=== PATIENT | female | born 1935 | race Caucasian/White ===

== ENCOUNTER 2018-07-26 08:43 | Inpatient (IN) ==
--- NOTE | 2018-07-11 15:31 | PAT Medication Instructions ---
Medication Instructions Date of Service July 11, 2018 Home Medications Allergy Tablet 1 tab PO UD PRN Antacid 1 tab PO DAILY alprazolam 0.5 mg PO BID amlodipine 2.5 mg PO QPM calcium citrate-vitamin D3 1 tab PO DAILY fluticasone propionate [Flonase 1 spray INTRANASAL UD PRN furosemide 40 mg PO QAM guaifenesin [Mucinex] 600 mg PO BID ibuprofen [Advil] 1 - 2 tab PO TID PRN lactobacillus combination no.4 3,000 mmu cells PO DAILY levothyroxine 88 mcg PO QAM Centrum Silver enkryqkc-rec-staw-FA-lutein 1 tab PO DAILY paroxetine HCl 10 mg PO QAM psyllium husk [Metamucil] 1 tbsp PO DAILY ASK your surgeon for instructions ibuprofen [Advil] 1 - 2 tab PO TID PRN STOP taking 2 weeks before surgery (or as soon as possible if surgery is within 2 weeks) Centrum Silver gdytzbow-yhc-grim-FA-lutein 1 tab PO DAILY DO NOT take the morning of surgery Allergy Tablet 1 tab PO UD PRN Antacid 1 tab PO DAILY calcium citrate-vitamin D3 1 tab PO DAILY furosemide 40 mg PO QAM guaifenesin [Mucinex] 600 mg PO BID lactobacillus combination no.4 3,000 mmu cells PO DAILY psyllium husk [Metamucil] 1 tbsp PO DAILY Take morning of surgery With a small sip of water, OTHERWISE NOTHING TO EAT OR DRINK AFTER MIDNIGHT: alprazolam 0.5 mg PO BID fluticasone propionate [Flonase 1 spray INTRANASAL UD PRN (if needed) levothyroxine 88 mcg PO QAM paroxetine HCl 10 mg PO QAM Take evening before surgery alprazolam 0.5 mg PO BID amlodipine 2.5 mg PO QPM fluticasone propionate [Flonase 1 spray INTRANASAL UD PRN (if needed) guaifenesin [Mucinex] 600 mg PO BID Other Notes If you have any questions please call us at [phone] or [phone] or [phone] or [phone]
--- NOTE | 2018-07-12 10:53 | Anesthesiology Consultation ---
Date of Service July 12, 2018 Assessment & Plan (1) Encounter for pre-operative examination: PCP addendum: 07/20/18: "After review of the CXR and EKG from her preop testing at [facility], pt continues to be medically maximized for this upcoming procedure as a moderate risk.. no medical contraindications at this time." Chart Review Chart Review: Acceptable Risk for Surgery and Patient seen in Pre Admission Testing Teaching & Discussion Pre-Anesthesia Teaching/Discussion Notes: Instructed NPO after midnight before surgery,except medications with 15 cc of water. Medication instructions provided according to the PAT guidelines. History Surgery Operation Date: 07/26/18 07:45 Proposed Procedures p L5-S1 Decompression and Fusion, - Jay John DO s L3-L4, L4-L5 Removal of Hardware with Spinal Cord Monitoring - Jay John DO Height/Weight Height: 5 ft 3.5 in Weight: 56.8 kg Allergies Allergy/AdvReac Type Severity Reaction Status Date / Time terbinafine Allergy Unknown HIVES Unverified 07/06/18 10:33 acetaminophen AdvReac Unknown ABDOMINAL Unverified 07/11/18 15:29 PAIN celecoxib AdvReac Unknown ABDOMINAL Unverified 07/11/18 15:29 PAIN cyclosporine AdvReac Unknown EXCESSIVE Unverified 07/11/18 15:29 EYE BURNING ibuprofen [From Advil] AdvReac Unknown ABDOMINAL Verified 07/11/18 15:29 PAIN WITH "HIGHER DOSES"; TOLERATES "REGULAR DOSE" naproxen AdvReac Unknown ABDOMINAL Unverified 07/11/18 15:29 PAIN propoxyphene AdvReac Unknown ABDOMINAL Unverified 07/11/18 15:29 PAIN tramadol AdvReac Unknown ABDOMINAL Unverified 07/11/18 15:29 PAIN BANDAGES Allergy Unknown "TEARS Uncoded 07/11/18 15:29 SKIN OFF" Medications Home Medications Medication Instructions Recorded Confirmed Last Taken Allergy Tablet 1 tab PO UD PRN 07/06/18 07/06/18 Unknown Antacid 1 tab PO DAILY 07/06/18 07/06/18 Unknown alprazolam 0.5 mg PO BID 07/06/18 07/06/18 07/06/18 amlodipine 2.5 mg PO QPM 07/06/18 07/06/18 07/05/18 calcium citrate-vitamin D3 1 tab PO DAILY 07/06/18 07/06/18 Unknown [Citracal Regular] fluticasone propionate [Flonase 1 spray INTRANASAL UD PRN 07/06/18 07/06/18 Unknown Allergy Relief] furosemide 40 mg PO QAM 07/06/18 07/06/18 07/06/18 guaifenesin [Mucinex] 600 mg PO BID 07/06/18 07/06/18 07/06/18 ibuprofen [Advil] 1 - 2 tab PO TID PRN 07/06/18 07/06/18 Unknown lactobacillus combination no.4 3,000 mmu cells PO DAILY 07/06/18 07/06/18 Unknown [Probiotic] levothyroxine 88 mcg PO QAM 07/06/18 07/06/18 07/06/18 lydapvtu-txs-rwxu-FA-lutein 1 tab PO DAILY 07/06/18 07/06/18 Unknown [Centrum Silver Women] paroxetine HCl 10 mg PO QAM 07/06/18 07/06/18 07/06/18 psyllium husk [Metamucil] 1 tbsp PO DAILY 07/06/18 07/06/18 Unknown Past Medical History Medical History Acid reflux CONTROLLED Anxiety and depression Arthritis Hearing problem Hypertension Hypothyroidism Knee problem RIGHT KNEE PAIN S/P INJECTION 06/2018 Urological disorder BLADDER PROLAPSE Exercise / Class Metabolic Activity III < 4 Walking/Shop/Light housework (USES WALKER IN SETTING OF INCREASING BACK PAIN) Past Family History Family History Brother Family history of lung cancer Family history of heart attack Father Family history of stroke Past Surgical History Surgical History History of appendectomy History of back surgery + HARDWARE History of carpal tunnel release of both wrists History of colonoscopy History of hysterectomy History of tonsillectomy History of vein stripping Past Anesthesia History No Family Hx of Anesthesia Complications and Other Patient states she felt like she did not have memory of period of time in pre-op or post-op with lumbar surgery and did not like the feeling of that. She states she had distinct memory of those time periods with other surgeries. History of PONV No Hx of PONV and No Hx of Motion Sickness Social History Smoking Status: Former smoker tobacco type: cigarettes Do You Dip or Chew Tobacco: No Smoking End Date: QUIT 30 YEARS AGO Hx Alcohol Use: Yes Alcohol type: wine alcohol intake frequency: 0-2 drinks per day (2 "SMALL" GLASSES WINE/NIGHT) substance use type: does not use Review of Systems Patient reports LBP with RLE radiculopathy/neuropathy. Patient complains of "thin skin." Patient denies chest pain, shortness of breath, cough, wheezing, palpitations. Physical Exam Vital Signs VITALS BP 147/76 P 68 TEMP 97.2 SP02 97%RA RESP 20 PHYSICAL Full neck and c-spine range of motion. Full TMJ range of motion. TMD 2.5 finger breaths Mallampati Score 2 Dentition: full denture on upper Lungs: diminished breath sounds Cardiac: regular rate and rhythm, no murmurs noted Spine: normal Carotid arteries: negative bruit Extremities: no edema Testing Electrocardiogram Date: 07/12/18 SB at 58bpm. Low voltage QRS. Chest X-Ray Date: 07/12/18 Findings: + NAD A 9 mm density at the right lung base is felt to represent calcification within overlying costochondral cartilage (report sent to PCP for their reference). Laboratory Results 07/12/18 12:09 07/12/18 12:09 PT 10.1 Seconds (9.0-12.0) 07/12/18 12:09 INR 1.0 (0.9-1.1) 07/12/18 12:09 APTT 24.3 Seconds (21.0-31.0) 07/12/18 12:09 Yellow 07/12/18 12:09 Cloudy (Clear) A 07/12/18 12:09 5.0 (4.5-7.5) 07/12/18 12:09 Ur Specific [place] 1.014 (1.000-1.030) 07/12/18 12:09 Negative (Negative) 07/12/18 12:09 Negative (Negative) 07/12/18 12:09 Negative (Negative) 07/12/18 12:09 Negative (Negative) 07/12/18 12:09 Ur Leukocyte Esterase 3+ (Negative) H 07/12/18 12:09 >30 /hpf (0-5) H 07/12/18 12:09 0-4 /hpf (0-4) 07/12/18 12:09 U Hyaline Cast (Auto) 1-5 /lpf (0-5) 07/12/18 12:09 U Epithel Cells (Auto) >30 /lpf (0-5) H 07/12/18 12:09 1+ (Negative) H 07/12/18 12:09 Blood Type A Positive 07/12/18 12:09 Antibody Screen NEGATIVE 07/12/18 12:09 07/12/18 12:09 Urine Culture - Final Urine,Clean Catch Gardnerella-like bacilli Due to header error, following labs header labels were missin07/12/18 UA 1+ bacteria URINE CULTURE no sensitivities to follow
[2018-07-12 12:38] LABS: Basophils # (auto) 0.01 K/uL (0-0.2); Basophils % (auto) 0.2 %; Eosinophils # (auto) 0.28 K/uL (0-0.5); Eosinophils % (auto) 4.9 %; Hematocrit (blood only) 39.3 % (37-47); Hemoglobin 13.4 g/dL (12.0-16.0); Immature Granulocytes # (auto) 0.03 K/uL (0.00-0.02); Immature Granulocytes % (auto) 0.5 %; Lymphocytes # (auto) 2.61 K/uL (1.2-3.4); Lymphocytes % (auto) 46.1 %; Mean Corpuscular Hgb Conc 34.1 g/dL (32-36); Mean Corpuscular Volume 87.9 fL (80-100); Mean Platelet Volume 9.6 fL (7.4-10.4); Monocytes # (auto) 0.68 K/uL (0.11-0.59); Neutrophils # (auto) 2.05 K/uL (1.4-6.5); Neutrophils % (auto) 36.3 %; Platelet Count 197 K/uL (130-400); RDW Coefficient of Variation 12.6 % (11.5-14.5); RDW Standard Deviation 40.3 fL (36.4-46.3); Red Blood Count 4.47 M/uL (4.2-5.4); White Blood Count 5.66 K/uL (4.8-10.8)
[2018-07-12 12:40] LABS: Appearance Urine Cloudy (Clear); Bacteria Urine Automated 1+ (Negative); Bilirubin Urine Negative (Negative); Blood Urine Negative (Negative); Color Urine Yellow; Epithelial Cell Urine Auto >30 /lpf (0-5); Glucose Urine UA Negative (Negative); Ketones Urine Negative (Negative); Leukocyte Esterase Urine 3+ (Negative); Nitrite Urine Negative (Negative); Protein Urine Negative (Negative); RBC Urine Automated 0-4 /hpf (0-4); Specific Gravity Urine 1.014 (1.000-1.030); Urobilinogen Urine Negative (Negative); WBC Urine Automated >30 /hpf (0-5)
--- NOTE | 2018-07-12 12:44 | XRay Report ---
XR chest Pre-admission PA/Lat CLINICAL HISTORY: Preoperative chest COMPARISON STUDY: No previous studies for comparison. FINDINGS: The cardiac and mediastinal contours are normal. There is no evidence of focal pulmonary co nsolidation. There is no evidence of failure. No pleural effusions are visualized.[ A 9 mm density at the right lung base is felt to represent calcification within overlying costochondral cartilage. IMPRESSION: No active disease in the chest. Electronically signed by: Raj Inman M.D. 07/12/2018 12:43 PM
[2018-07-12 12:54] LABS: Partial Thromboplastin Ratio 0.9; Partial Thromboplastin Time 24.3 Seconds (21.0-31.0); Prothrombin Time 10.1 Seconds (9.0-12.0)
[2018-07-12 13:39] LABS: BUN Creatinine Ratio 13.5 (10-20); Calcium 9.6 mg/dl (8.5-10.1); Creatinine Clr Calc Pharmacy 38.7 ml/min; Est GFR (African American) 65.9; Est GFR (Non-African American) 56.8; Potassium 4.5 mmol/L (3.5-5.1)
[~2018-07-26 08:43] MED LIST: ACETAMINOPHEN 500 MG TAB PO SCH; CEFAZOLIN 1000MG 1,000 MG/7.5 ML SYR IV SCH; CeleBREX 200 MG CAP PO SCH; DEXAMETHASONE SOD INJ 4 MG/ML VIAL ONE; GABAPENTIN 300 MG x 2 PO SCH; GLYCOPYRROLATE 0.2 MG/ML VIAL ONE; HYDROmorphone INJ 2 MG/ML SYR/VIAL ONE; LIDOCAINE HCL 2% 2 ML VIAL/AMP(20MG/ML) INFIL ONE; LR 15ML/HR IV SCH; ONDANSETRON INJ 2 MG/ML 2 ML VIAL ONE; PROPOFOL IV EMULSION 10 MG/ML 100 ML VIAL IV ONE; PROPOFOL IV EMULSION 10 MG/ML 20 ML VIAL IV ONE; ROCURONIUM BROMIDE 10 MG/ML 5 ML VIAL ONE; fentaNYL citrate 100 MCG/2 ML VIAL ONE
[2018-07-26] MEDS ORDERED: ONDANSETRON INJ 2 MG/ML 2 ML VIAL IV PRN (09:42)
[2018-07-26] MEDS ORDERED: LABETALOL HCL IV 5 MG/ML 20ML IV PRN (09:42)
[2018-07-26] MEDS ORDERED: ATROPINE SULFATE 0.1 MG/ML 10ML SYR IV PRN (09:42)
[2018-07-26] MEDS ORDERED: HYDROmorphone INJ 1 MG/ML SYRINGE IV PRN (09:42)
--- NOTE | 2018-07-26 10:04 | History & Physical Bridge Note ---
Date of Service July 26, 2018 History & Physical Bridge Note I have examined the patient, reviewed the History & Physical and in the interval since the performance of the History & Physical I have noted the following changes of clinical significance: no changes noted
--- NOTE | 2018-07-26 10:05 | History & Physical Report ---
Date of Service July 26, 2018 Assessment & Plan (1) Spinal stenosis, lumbar region with neurogenic claudication: Decompression and fusion L5-S1 removal of hardware L3-4 L4-5 Present on Admission?: Yes History of Present Illness Chief Complaint: Back and leg pain Primary Care Provider: Milan Galindo DO This is a 82-year-old female who presents with chronic persistent back and leg pain. After failing extensive course of nonoperative care she is here for surgical intervention. Allergies Allergy/AdvReac Type Severity Reaction Status Date / Time celecoxib AdvReac Severe ABDOMINAL Verified 07/26/18 09:26 PAIN naproxen AdvReac Severe ABDOMINAL Verified 07/26/18 09:26 PAIN propoxyphene AdvReac Severe ABDOMINAL Verified 07/26/18 09:26 PAIN cyclosporine AdvReac Intermediate EXCESSIVE Verified 07/26/18 09:26 EYE BURNING tramadol AdvReac Intermediate ABDOMINAL Verified 07/26/18 09:26 PAIN terbinafine AdvReac Mild Nausea Verified 07/26/18 09:26 BANDAGES Allergy Unknown "TEARS Uncoded 07/26/18 09:26 SKIN OFF" Home Medications Home Medications Medication Instructions Recorded Confirmed Type Allergy Tablet 1 tab PO UD PRN 07/06/18 07/26/18 History Antacid 1 tab PO DAILY 07/06/18 07/26/18 History alprazolam 0.5 mg PO BID 07/06/18 07/26/18 History amlodipine 2.5 mg PO QPM 07/06/18 07/26/18 History calcium citrate-vitamin D3 1 tab PO DAILY 07/06/18 07/26/18 History [Citracal Regular] fluticasone propionate [Flonase 1 spray INTRANASAL UD PRN 07/06/18 07/26/18 History Allergy Relief] furosemide 40 mg PO QAM 07/06/18 07/26/18 History guaifenesin [Mucinex] 600 mg PO BID 07/06/18 07/26/18 History ibuprofen [Advil] 1 - 2 tab PO TID PRN 07/06/18 07/26/18 History lactobacillus combination no.4 3,000 mmu cells PO DAILY 07/06/18 07/26/18 History [Probiotic] levothyroxine 88 mcg PO QAM 07/06/18 07/26/18 History hltzhlpf-uva-wtaa-FA-lutein 1 tab PO DAILY 07/06/18 07/26/18 History [Centrum Silver Women] paroxetine HCl 10 mg PO QAM 07/06/18 07/26/18 History psyllium husk [Metamucil] 1 tbsp PO DAILY 07/06/18 07/26/18 History peg 400-propylene glycol (PF) 1 drp OPHTHALMIC (EYE) BID PRN 07/26/18 07/26/18 History [Systane (PF)] Past Med/Surg History Medical History Acid reflux CONTROLLED Anxiety and depression Arthritis Hearing problem Hypertension Hypothyroidism Knee problem RIGHT KNEE PAIN S/P INJECTION 06/2018 Urological disorder BLADDER PROLAPSE Surgical History History of appendectomy History of back surgery + HARDWARE History of carpal tunnel release of both wrists History of colonoscopy History of hysterectomy History of tonsillectomy History of vein stripping Family History Brother Family history of lung cancer Family history of heart attack Father Family history of stroke Social History Preferred Language: Pashto Communication Ability: Effective Bit Setter Required: No Beliefs That Will Affect Care: Caodaism Caodaism Beliefs: MUSLIM Current Living Situation: Spouse and Other Current Living Situation Comment: LIVES WITH AND SON Other Information That Helps Us Care for You: No Feels Safe at Home: Yes Smoking Status: Former smoker Tobacco Type: cigarettes Do You Dip or Chew Tobacco: No Smoking End Date: QUIT 30 YEARS AGO Hx Alcohol Use: Yes Alcohol type: wine Physical Exam Vital Signs (Past 24 Hours): Last Vital Signs Temp 36.8 C 07/26/18 09:36 Pulse 79 07/26/18 09:36 Resp 22 07/26/18 09:36 BP 167/84 H 07/26/18 09:36 Pulse Ox 98 07/26/18 09:36 Physical Exam: Patient is alert and oriented and neurologically intact.
[2018-07-26] MEDS ORDERED: BACITRACIN INJ 50,000 UNIT VIAL ONE (10:15)
[2018-07-26] MEDS ORDERED: BUPIVACAINE/EPINEPHRINE 0.5% MPF 1:200,000 30 ML VIAL ONE (10:15)
[2018-07-26] MEDS ORDERED: fentaNYL citrate 100 MCG/2 ML VIAL ONE ×2 (10:53→10:59)
[2018-07-26] MEDS ORDERED: FLOSEAL HEMOSTATIC MATRIX 10ML TOP ONE (11:04)
[2018-07-26] MEDS ORDERED: HYDROmorphone INJ 2 MG/ML SYR/VIAL ONE (12:26)
[2018-07-26] MEDS ORDERED: ESMOLOL HCL INJ 10 MG/ML 10ML VIAL IV ONE (12:30)
[2018-07-26] MEDS ORDERED: ePHEDrine sulfate 50 MG/ML SYR ONE (12:30)
[2018-07-26] MEDS ORDERED: ONDANSETRON INJ 2 MG/ML 2 ML VIAL ONE (12:30)
[2018-07-26] MEDS ORDERED: LARYING-O-JET KIT (LTA) ONE (12:30)
[2018-07-26] MEDS ORDERED: KETOROLAC 30 MG/ML VIAL ONE (12:30)
[2018-07-26] MEDS ORDERED: PHENYLEPHRINE 100MCG/ML 5ML SYR ONE (12:30)
--- NOTE | 2018-07-26 12:30 | Operative Report ---
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 #2 exploration of fusion L3- 4 L4-5 per #3 lumbar decompression bilateral medial facetectomies foraminotomies L5-S1. #4 posterior spinal fusion L3-4 L4-5 L5-S1. #5 placement of posterior segmental instrumentation L3-4 L4-5 5 S1. #6 interbody fusion L5-S1 per #7 placement of peek cage 12 x 22 mm at L5-S1. #8 placement of local autograft in the posterior lateral gutters. #9 placement infuse collagen sponge, mass graft in the posterior gutters and ostial amp and interbody space. Surgeon Jay John, Cherry Grower Rola Romeo Estimated Blood Loss 125 Findings Consistent with Post-Op Diagnosis Specimens None Indications This is a 82-year-old female presents with above-mentioned diagnosis after failing extensive course of nonoperative care she like to undergo the above- mentioned procedure. Description of Procedure Patient was met with identified and informed consent obtained. Patient was then taken to the operative suite underwent intubation and placed in a prone position the Erick table on top of the Cullen frame. All bony prominences were well- padded eyes inspected to ensure no external pressure placed upon. This point the lumbar spine was prepped and draped in a normal sterile fashion. Sharp dissection with the assistance of Bovie cautery was performed down to and exposing the instrumentation at L3-4 and 5 on the left. There was no instrumentation on the right. I remove the hardware at L3 L4-5 and explored the fusion mass. No mass was appreciable both on the left and the right sides and there is obvious instability and motion indicating a nonunion at the L3 445 level. I then performed a complete laminectomy of L5 including medial facetectomies and foraminotomies bilaterally addressing severe stenosis. Pedicle screws were then inserted in L3-L4-L5 S1 levels bilaterally with the assistance of fluoroscopy and by way of a transforaminal approach on the right complete discectomy of L5-S1 is performed in plate graded to subcortical bleeding bone and a 12 x 22 mm peek cage filled with ostium bone graft tapped into position. The rods were then placed locked in final position bilaterally. The transverse processes of L3-L4-L5 and the sacral ala were burred to subcortical bleeding bone infuse collagen sponge mass graft local autograft placed in the posterior lateral gutters bilaterally. 15 round JO ANN drain inserted. Incision was then closed with 1 Vicryl fascia 2-0 Vicryl subcutaneous and 4 Monocryl for final skin closure. Steri-Strip sterile dressings placed. Patient awakened taken to PACU stable condition. Please note Rola Romeo present throughout the entire procedure involved in patient positioning complex portions of the surgery and final skin closure. Lastly spinal cord monitoring was utilized throughout the procedure no changes noted. I attest to the content of the Intraoperative Record and any orders documented therein. Any exceptions are noted below.
--- NOTE | 2018-07-26 12:50 | Fluoroscopy Report ---
LUMBAR SPINE, INTRAOPERATIVE FLUOROSCOPY HISTORY: L3-S1 decompression and fusion. FLUOROSCOPY TIME: 23 seconds. FINDINGS: Intraoperative fluoroscopy was provided for the lumbar spine. A single fluoroscopic spot im age demonstrates posterior decompression fusion from L3 through S1 with pedicle screws and rods. The hardware appears intact. IMPRESSION: Fluoroscopy provided for a L3-S1 posterior decompression and fusion. Electronically signed by: Samir Guan M.D. 07/26/2018 12:49 PM
--- NOTE | 2018-07-26 13:25 | Anesthesiology Progress Note ---
Date of Service July 26, 2018 Anesthesia Post Procedure Vital Signs Vital Signs: Temp Pulse Resp BP Pulse Ox 07/26/18 13:15 83 15 145/65 H 97 07/26/18 13:05 86 19 145/63 H 99 07/26/18 12:55 86 19 142/69 H 100 07/26/18 12:45 36.3 C L 88 12 152/74 H 96 07/26/18 09:36 36.8 C 79 22 167/84 H 98 Pain Intensity Right Lower Back: Pain Intensity: 3 Transfer of Care Handoff Completed per policy Notes Mental Status: alert / awake / arousable Patient Amnestic to Procedure: Yes Nausea / Vomiting: adequately controlled Pain: adequately controlled Airway Patency, RR, SpO2: stable & adequate BP & HR: stable & adequate Hydration State: stable & adequate Anesthetic Complications: no major complications apparent
[2018-07-26] MEDS: LACTATED RINGER'S 1,000 ML IV SCH (13:40)
[2018-07-26] MEDS ORDERED: LORazepam 0.5 MG/1 ML VIAL IV PRN (13:55)
[2018-07-26] MEDS ORDERED: METOCLOPRAMIDE HCL INJ 5 MG/ML 2 ML VIAL IV PRN (13:55)
[2018-07-26] MEDS ORDERED: ARTIFICIAL TEARS OP PRN (13:55)
[2018-07-26] MEDS ORDERED: HYDROmorphone INJ 0.5 MG/0.5 ML SYR IV PRN (13:55)
[2018-07-26] MEDS ORDERED: ALUMINUM/MAGNESIUM SUSP 30 ML UDC PO PRN (13:55)
[2018-07-26] MEDS ORDERED: DO NOT ADMINISTER PNEUMOCOCCAL VACCINE PRN (13:55)
[2018-07-26] MEDS ORDERED: SOD PHOSPHATE/SOD BIPHOSPHATE ENEMA 132 ML BTL PR PRN (13:55)
[2018-07-26] MEDS ORDERED: DO NOT ADMINISTER FLU VACCINE PRN (13:55)
[2018-07-26] MEDS ORDERED: ONDANSETRON 4 MG TAB PO PRN (13:55)
[2018-07-26] MEDS ORDERED: FAMOTIDINE 20 MG TAB PO PRN (13:55)
[2018-07-26] MEDS ORDERED: BISACODYL 10 MG SUPP PR PRN (13:55)
[2018-07-26] MEDS ORDERED: PROMETHAZINE HCL 12.5 MG in SODIUM CHLORIDE 0.9% 50 ML IV PRN (13:55)
[2018-07-26] MEDS ORDERED: MAGNESIUM HYDROXIDE SUSP 30 ML UDC PO PRN (13:55)
[2018-07-26] MEDS: OXYCODONE HCL IR 5 MG TAB (IMMEDIATE RELEASE) PO PRN (14:44)
--- NOTE | 2018-07-26 14:52 | Consultation ---
Date of Consultation July 26, 2018 Assessment & Plan (1) Spinal stenosis, lumbar region with neurogenic claudication: S/P Lumbar Decompression/Fusion L3-S1 by Dr. John POD #0 EBL 125ml tolerated procedure well post operatively pt is tachycardic in 110s, blood pressure 124/69, does not appe ar hypovolemic tachycardic likely in setting of post op pain Wound/pain management per ortho activity and therapy as directed by ortho dvt ppx as directed by ortho incentive spirometry follow cbc for abl anemia Per family pt with history of UTIs - recommend discontinuing bender when medically able (2) Hypertension: Blood pressure currently stable 124/69 Continue amlodipine at HS Patient also takes Lasix for lower extremity swelling Hold Lasix until reevaluated in a.m. specifically blood pressure and renal function/electrolyes (3) Hypothyroidism: Continue levo thyroxine (4) Anxiety and depression: Mood is stable continue as needed Xanax and daily Paxil (5) DVT prophylaxis: SCSD/TEDS, per ortho Disposition: per primary Follow up: PCP at [facility] upon discharge Patient was seen and examined in collaboration with Dr. Bell, please see addendum Starting 07/27/18 pt will be under the care of Dr. Monae Thank you for this consultation. We will follow the patient with you during their hospital stay. You [facility] via pager @ [phone]. Supervising Physician Co-Signing Physician Notes I have seen and examined the patient with physician review assistant and would like to comment that This patient with pre-op diagnosis of Lumbar spinal stenosis with radiculopathy Actual Procedures #1 removal of posterior instrumentation L3-4 L4-5. #2 exploration of fusion L3- 4 L4-5 per #3 lumbar decompression bilateral medial facetectomies foraminotomies L5-S1. #4 posterior spinal fusion L3-4 L4-5 L5-S1. #5 placement of posterior segmental instrumentation L3-4 L4-5 5 S1. #6 interbody fusion L5-S1 per #7 placement of peek cage 12 x 22 mm at L5-S1. #8 placement of local autograft in the posterior lateral gutters. #9 placement infuse collagen sponge, mass graft in the posterior gutters and ostial amp and interbody space. Medicine service consulted for management of post-operative state and to follow with orthopedic service as consulting service on management of other medical issues Agree with physician review assistant on management of pain management in a post-op patient Patient has JO ANN drain from surgical site with blood. To be managed by orthopedic service. Patients blood pressure is controlled continue home dose amlodipine for management of hypertension; agree with holding Lasix for now Continue home dose Levothyroxine for management for hypothyroidism Continue bender for now. Patient should have bender removed by 07/27/18 unless concerns for minimal urine output or urinary retention On Physical Exam General: no acute distress, verbal, follows directions, laying flat Back: presence of JO ANN drain with blood : has bender Heart: regular rate during my exam, rhythm is regular Lungs: clear to anterior auscultation bilaterally Abdomen: soft, nontender, bowel sounds present Legs: in SCDs, able to move feet at the ankles and move the toes History of Present Illness Requesting Physician: Dr. John Reason for Consultation: Postop medical management Attending Physician: Jay John, DO History of Present Illness This is an 82-year-old female who has a significant PMH of HTN, hypothyroidism, anxiety, depression, GERD, history of prior lumbar surgery who presents to [facility] for elective lumbar procedure by Dr. John. 2 daughters and son at bedside. Patient failed outpatient nonoperative management. She underwent L3-S1 decompression fusion. She tolerated procedure well. Complains of lower back pain 7/10 along with right leg numbness. She denies any radicular pain. Currently eating lunch and tolerating p.o. intake. Has been drinking p.o. fluids postoperatively. Denies any fever, chills, sweats, lightheadedness, dizziness, chest pain, shortness breath, palpitations, nausea, vomiting, abdominal pain. She does have a Bender catheter in place. Daughter states last time she had lumbar procedure she had very, "sick from UTI." Family requesting Bender removal as soon as medically able. Allergies Allergy/AdvReac Type Severity Reaction Status Date / Time celecoxib AdvReac Severe ABDOMINAL Verified 07/26/18 09:26 PAIN naproxen AdvReac Severe ABDOMINAL Verified 07/26/18 09:26 PAIN propoxyphene AdvReac Severe ABDOMINAL Verified 07/26/18 09:26 PAIN cyclosporine AdvReac Intermediate EXCESSIVE Verified 07/26/18 09:26 EYE BURNING tramadol AdvReac Intermediate ABDOMINAL Verified 07/26/18 09:26 PAIN terbinafine AdvReac Mild Nausea Verified 07/26/18 09:26 BANDAGES Allergy Unknown "TEARS Uncoded 07/26/18 09:26 SKIN OFF" Home Medications Home Medications Medication Instructions Recorded Confirmed Type Allergy Tablet 1 tab PO UD PRN 07/06/18 07/26/18 History Antacid 1 tab PO DAILY 07/06/18 07/26/18 History alprazolam 0.5 mg PO BID 07/06/18 07/26/18 History amlodipine 2.5 mg PO QPM 07/06/18 07/26/18 History calcium citrate-vitamin D3 1 tab PO DAILY 07/06/18 07/26/18 History [Citracal Regular] fluticasone propionate [Flonase 1 spray INTRANASAL UD PRN 07/06/18 07/26/18 History Allergy Relief] furosemide 40 mg PO QAM 07/06/18 07/26/18 History guaifenesin [Mucinex] 600 mg PO BID 07/06/18 07/26/18 History ibuprofen [Advil] 1 - 2 tab PO TID PRN 07/06/18 07/26/18 History lactobacillus combination no.4 3,000 mmu cells PO DAILY 07/06/18 07/26/18 History [Probiotic] levothyroxine 88 mcg PO QAM 07/06/18 07/26/18 History [id number]-mlg-xzzh-FA-lutein 1 tab PO DAILY 07/06/18 07/26/18 History [Centrum Silver Women] paroxetine HCl 10 mg PO QAM 07/06/18 07/26/18 History psyllium husk [Metamucil] 1 tbsp PO DAILY 07/06/18 07/26/18 History peg 400-propylene glycol (PF) 1 drp OPHTHALMIC (EYE) BID PRN 07/26/18 07/26/18 History [Systane (PF)] Patient History Family History Brother Family history of lung cancer Family history of heart attack Father Family history of stroke Social History Preferred Language: Frisian Communication Ability: Effective Sticker Operator Required: No Beliefs That Will Affect Care: Taoism Taoism Beliefs: ADVENTISM Current Living Situation: Spouse and Other Current Living Situation Comment: LIVES WITH AND SON Other Information That Helps Us Care for You: No Feels Safe at Home: Yes Smoking Status: Former smoker Tobacco Type: cigarettes Do You Dip or Chew Tobacco: No Smoking End Date: QUIT 30 YEARS AGO Hx Alcohol Use: Yes Alcohol type: wine Review of Systems Review of Systems: As noted per HPI, 10 systems reviewed and negative unless noted above. Physical Exam Physical Exam: Gen: WD/WN, Elderly, F, Sitting up in bed, very pleasant and conversing easily Head: Normocephalic, Atraumatic Eyes: Sclera normal, no conjunctival injection, PERRLA, EOMI ENT: Gross hearing intact but slight hard of hearing, normal pharynx, mucous membranes moist Neck: supple, no adenopathy, No JVD, no bruit, Resp: Clear to auscultation b/l, no wheeze, rales, rhonchi. Normal insp/exp effort, no accessory muscle use CV:tachycardic rate, regular rhythm, no murmur, rub, gallop, or ectopy Abd: +BS x 4, soft, nontender, nondistended Musculoskeletal: moves extremities active rom x 4, strength intact, good cannon crewmember strength Extremities: No edema bilaterally, SCDS in tact Skin: warm, moist, no rash, negative turgor, cap refill < 2sec, Lumbar dressing CDI, JO ANN drain with serosanginous drainage Neuro: Alert and oriented x 3, speech normal, good mood/affect, cran nerve 2-12 intact grossly : +bender cath Results & Data Vital Signs (Past 12 Hours) Vital Signs Temp Pulse Pulse Resp BP Pulse Ox 07/26/18 14:40 36.8 C 111 H 17 124/69 99 07/26/18 14:10 82 17 146/68 H 94 07/26/18 13:40 36.6 C 80 16 150/70 H 95 07/26/18 13:25 36.9 C 80 15 138/72 97 07/26/18 13:15 83 15 145/65 H 97 07/26/18 13:05 86 19 145/63 H 99 07/26/18 12:55 86 19 142/69 H 100 07/26/18 12:45 36.3 C L 88 12 152/74 H 96 07/26/18 09:36 36.8 C 79 22 167/84 H 98 Laboratory Results Preoperative lab work: H/H 13.4 and 39.3 WBC 5.6 Platelet 197 CMP relatively unremarkable with BUN 13 creatinine 0.93 Urinalysis positive leukoesterase +1 bacteria grew greater than 100,000 Gardnerella no sensitivity Diagnostic Findings CXR:IMPRESSION: No active disease in the chest. Lumbar Spine Xray: FINDINGS: Intraoperative fluoroscopy was provided for the lumbar spine. A single fluoroscopic spot image demonstrates posterior decompression fusion from L3 through S1 with pedicle screws and rods. The hardware appears intact. IMPRESSION: Fluoroscopy provided for a L3-S1 posterior decompression and fusion. Medications Administered Lactated Ringer's (Lr) 1,000 mls @ 75 mls/hr IV .[id number] [facility] Stop: 08/25/18 14:04 Last Admin: 07/26/18 13:40 Dose: 75 mls/hr Documented by: [id number] Oxycodone HCl (Roxicodone Immediate Rel) 5 - 10 mg PO Q4H PRN PRN Reason: Moderate-Severe Pain Stop: 08/09/18 13:54 Last Admin: 07/26/18 14:44 Dose: 5 mg Documented by: [id number] Discontinued Medications Acetaminophen (Tylenol) 1,000 mg PO PREOP [facility] Stop: 07/26/18 18:00 Last Admin: 07/26/18 09:58 Dose: 1,000 mg Documented by: [id number] Bacitracin (Bacitracin) Confirm Administered Dose 50,000 units .ROUTE .STK-MED ONE Stop: 07/26/18 10:16 Last Admin: 07/26/18 11:12 Dose: 50,000 units Documented by: [id number] Bupivacaine HCl/Epinephrine Bitart (Sensorcaine/Epinephrine 0.5% Mpf 1:200,000) Confirm Administered Dose 30 ml .ROUTE .STK-MED ONE Stop: 07/26/18 10:16 Last Admin: 07/26/18 11:11 Dose: 19 ml Documented by: [id number] Celecoxib (Celebrex) 200 mg PO PREOP [facility] Stop: 07/26/18 18:00 Last Admin: 07/26/18 10:09 Dose: Not Given Documented by: [id number] Gabapentin (Neurontin) 600 mg PO PREOP [facility] Stop: 07/26/18 18:00 Last Admin: 07/26/18 10:09 Dose: Not Given Documented by: [id number] Lactated Ringer's (Lr) 1,000 mls @ 15 mls/hr IV .Q24H [facility] Stop: 07/27/18 05:59 Last Infusion: 07/26/18 14:05 Dose: 0 mls/hr Documented by: [id number] Admin: 07/26/18 10:07 Dose: 15 mls/hr Documented by: [id number] Cefazolin Sodium (Ancef 1000mg) 1,000 mg in 7.5 mls @ 2.5 mls/min IV PREOP [facility]; Protocol Stop: 07/26/18 18:00 Last Admin: 07/26/18 10:28 Dose: 2.5 mls/min Documented by: [id number] Miscellaneous (Floseal Hemostatic Matrix 10ml) 10 ml TOP ONCE ONE Stop: 07/26/18 11:05 Last Admin: 07/26/18 12:21 Dose: 7 ml Documented by: [id number]
[2018-07-26] MEDS: CEFAZOLIN 1000MG 1,000 MG/7.5 ML SYR IV SCH (18:31)
[2018-07-26] MEDS: guaiFENesin 600 MG TABCR PO SCH (20:38)
[2018-07-26] MEDS: AMLODIPINE BESYLATE 5 MG TAB PO SCH (20:38)
[2018-07-26] MEDS: ALPRAZolam 0.5 MG TABLET PO SCH (20:38)
[2018-07-26] MEDS: DOCUSATE SODIUM/SENNA 50/8.6MG TAB PO SCH (20:38)
[2018-07-26] MEDS: LORazepam 0.5 MG TAB PO PRN (22:55)
[2018-07-27] MEDS: CEFAZOLIN 1000MG 1,000 MG/7.5 ML SYR IV SCH (02:15)
[2018-07-27] MEDS: LACTATED RINGER'S 1,000 ML IV SCH (02:16)
[2018-07-27] MEDS: LEVOTHYROXINE SODIUM 88 MCG TABLET PO SCH (06:04)
[2018-07-27] MEDS: POLYETHYLENE (MIRALAX) 17 GM PACK PO SCH ×3 (06:04→17:58)
[2018-07-27 06:15] LABS: Hematocrit (blood only) 29.4 % (37-47); Hemoglobin 10.5 g/dL (12.0-16.0); Immature Granulocytes # (auto) 0.02 K/uL (0.00-0.02); Immature Granulocytes % (auto) 0.2 %; Lymphocytes # (auto) 1.78 K/uL (1.2-3.4); Lymphocytes % (auto) 18.2 %; Mean Corpuscular Hgb Conc 35.7 g/dL (32-36); Mean Corpuscular Volume 84.7 fL (80-100); Mean Platelet Volume 9.2 fL (7.4-10.4); Monocytes # (auto) 0.96 K/uL (0.11-0.59); Monocytes % (auto) 9.8 %; Neutrophils # (auto) 7.04 K/uL (1.4-6.5); Neutrophils % (auto) 71.8 %; Platelet Count 164 K/uL (130-400); RDW Coefficient of Variation 12.8 % (11.5-14.5); RDW Standard Deviation 39.3 fL (36.4-46.3); Red Blood Count 3.47 M/uL (4.2-5.4)
[2018-07-27 06:51] LABS: BUN Creatinine Ratio 8.8 (10-20); Calcium 8.7 mg/dl (8.5-10.1); Creatinine Clr Calc Pharmacy 45.6 ml/min; Est GFR (African American) 80.2; Est GFR (Non-African American) 69.2; Potassium 3.8 mmol/L (3.5-5.1)
[2018-07-27] MEDS: PARoxetine HCl 10 MG TAB PO SCH (08:21)
[2018-07-27] MEDS: LACTOBACILLUS ACIDOPHILUS (FLORANEX) TAB PO SCH (08:21)
[2018-07-27] MEDS: guaiFENesin 600 MG TABCR PO SCH ×2 (08:21→21:01)
[2018-07-27] MEDS: ALPRAZolam 0.5 MG TABLET PO SCH ×2 (08:22→21:01)
[2018-07-27] MEDS ORDERED: FUROSEMIDE 40 MG TAB PO SCH (09:00)
--- NOTE | 2018-07-27 09:28 | Hospitalist Progress Note ---
Date of Service July 27, 2018 Assessment & Plan (1) Spinal stenosis, lumbar region with neurogenic claudication: S/P Lumbar Decompression/Fusion L3-S1 by Dr. John POD #1 EBL 125ml; JO ANN drain 335ml tolerated procedure well Wound/pain management per ortho activity and therapy as directed by ortho dvt ppx as directed by ortho incentive spirometry follow cbc for abl anemia Per family pt with history of UTIs - recommend discontinuing bender today (2) Acute blood loss anemia: H/H stable 10.5/29.4 Preoperatively 13.4/39.3 Monitor CBC (3) Hypertension: Blood pressure currently stable 136/70 continue amlodipine at HS will resume lasix (4) Hypothyroidism: Continue levo thyroxine (5) Anxiety and depression: Mood is stable continue as needed Xanax and daily Paxil (6) DVT prophylaxis: SCSD/TEDS, per ortho Disposition: per primary Follow up: PCP at [facility] upon discharge Patient was seen and examined in collaboration with Dr. Monae, please see addendum Thank you for this consultation. We will follow the patient with you during their hospital stay. You can reach a member of the [facility] Team 21/09 via pager @ [phone]. Supervising Physician Co-Signing Physician Notes I have seen and examined the patient This patient with pre-op diagnosis of Lumbar spinal stenosis with radiculopathy Actual Procedures #1 removal of posterior instrumentation L3-4 L4-5. #2 exploration of fusion L3- 4 L4-5 per #3 lumbar decompression bilateral medial facetectomies foraminotomies L5-S1. #4 posterior spinal fusion L3-4 L4-5 L5-S1. #5 placement of posterior segmental instrumentation L3-4 L4-5 5 S1. #6 interbody fusion L5-S1 per #7 placement of peek cage 12 x 22 mm at L5-S1. #8 placement of local autograft in the posterior lateral gutters. #9 placement infuse collagen sponge, mass graft in the posterior gutters and ostial amp and interbody space. Medicine service consulted for management of post-operative state and to follow with orthopedic service as consulting service on management of other medical issues Agree with physician clinical laboratory assistant on management of pain management in a post-op patient Patient has JO ANN drain from surgical site with blood. To be managed by orthopedic service. Patients blood pressure is controlled continue home dose amlodipine for management of hypertension; agree with holding Lasix for now Continue home dose Levothyroxine for management for hypothyroidism Continue bender for now. Patient should have bender removed by 07/27/18 unless concerns for minimal urine output or urinary retention Resume Post Op Care per Surgery Protocol Incentive Spirometry 10x per Hour Resume Relative Home Meds Where Appropriate PT/OT with appropriate fall precautions Transition from IV to PO Pain control DVT Prophylaxis Per Surgery Protocol Monitor Daily Labs ROS-No Headache, No Visual Changes, No Nausea, No Vomiting, No Fever, No Chills, No Neck Pain or Stiffness, No Chest Pain, No Palpitations, No SOB, No JONES, No C ough, No Sputum, No Wheezing, No Abdominal Pain, No Diarrhea, No Hematemesis, No Hemoptysis, No Unexpected Weight Loss, No Flank pain, No Melena, No Hematochezia, No Frequency, No Urgency, No Burning, No Hematuria, No Rashes, No Diaphoresis. Appetite is Normal, C/O sore Back, not too bad Physical Exam Gen-AAO x 3, NAD, Afebrile Head-NCAT, EOMI, PERRLA, Anicteric Sclera, No Posterior Pharyngeal Erythema Neck-Supple, No JVD, No Thyromegaly, No Masses, No LAD, No Bruits Lungs-Clear to Auscultation Bilaterally, No Rales, No Rhonchi, No Wheezing, No Crepitus Chest-No S4, +S1, +S2, No S3, No Murmurs, No Rubs, No Gallops, No Ectopy Abdomen-Soft, Bowel Sounds Present, Non Tender, Non Distended, No Hepatomegaly, No Splenomegaly, No Palpable Masses, No Rebound, No Rigidity, No Guarding Musculoskeletal-Full Range of Motion Bilaterally, No CVAT Extremities-No Cyanosis, No Clubbing, No Edema Nuero-Cranial Nerves II-XII grossly intact, Motor WNL, DTRs WNL, Strength WNL, Non Focal Psych-Normal Mood Subjective Patient seen and examined in room 314-1. Follow up s/p Lumbar decompression/fusion by Dr. John. Patient overall doing well. Up to bedside chair. No acute concerns. Had mild abdominal discomfort this morning, "described as gas," improved with belching. Denies f/c/s, chest pain, sob, n/v/d. Tolerating PO intake. +flatus. Continues with bender in place. Pt requesting removal. Review of Systems Review of Systems: As noted per HPI, 10 systems reviewed and negative unless noted above. Physical Exam Physical Exam: Gen: WD/WN, elderly, female, sitting up at bedside chair, very pleasant and conversing easily, NAD, A&O x3 HEENT: Normocephalic, atraumatic, conjunctivae moist, sclerae anicteric, mucous membranes moist. Lung: Clear to Auscultation bilaterally, no wheezes/rales/rhonchi Heart: Regular rate, regular rhythm, no murmurs, rubs, or gallops Abdomen: Soft, NT, ND +BS x 4 Extremities: No edema, TEDS b/l Skin: Warm, no rash, negative turgor. Lumbar dressing CDI, JO ANN drain with serosanguineous drainage Results & Data Vital Signs (Past 12 Hours) Vital Signs Temp Pulse Pulse Resp BP Pulse Ox 07/27/18 07:40 37.1 C 87 18 136/70 98 07/27/18 02:13 36.9 C 86 16 125/61 95 07/26/18 23:25 36.7 C 84 16 133/66 98 Laboratory Results Short CBC 07/27/18 Range/Units 06:00 WBC 9.80 (4.8-10.8) K/uL Hgb 10.5 L (12.0-16.0) g/dL Hct 29.4 L (37-47) % Plt Count 164 (130-400) K/uL BMP 07/27/18 06:00 Sodium 140 Potassium 3.8 Chloride 106 Carbon Dioxide 27 BUN 7 Creatinine 0.79 Glucose 111 H Calcium 8.7 Medications Administered Alprazolam (Xanax) 0.5 mg PO BID [facility] Stop: 08/25/18 20:59 Last Admin: 07/27/18 08:22 Dose: 0.5 mg Documented by: [id number] Admin: 07/26/18 20:38 Dose: 0.5 mg Documented by: [id number] Amlodipine Besylate (Norvasc) 2.5 mg PO QPM [facility] Stop: 08/25/18 20:59 Last Admin: 07/26/18 20:38 Dose: 2.5 mg Documented by: [id number] Guaifenesin (Mucinex) 600 mg PO BID [facility] Stop: 08/25/18 20:59 Last Admin: 07/27/18 08:21 Dose: 600 mg Documented by: [id number] Admin: 07/26/18 20:38 Dose: 600 mg Documented by: [id number] Lactobacillus Acidophilus (Floranex) 4 tab PO DAILY [facility] Stop: 08/26/18 08:59 Last Admin: 07/27/18 08:21 Dose: 4 tab Documented by: [id number] Levothyroxine Sodium (Synthroid) 88 mcg PO DAILYBB [facility] Stop: 08/26/18 06:29 Last Admin: 07/27/18 06:04 Dose: 88 mcg Documented by: [id number] Lorazepam (Ativan) 0.5 mg PO Q8H PRN PRN Reason: Sedation/Anxiety Stop: 08/25/18 13:54 Last Admin: 07/26/18 22:55 Dose: 0.5 mg Documented by: [id number] Oxycodone HCl (Roxicodone Immediate Rel) 5 - 10 mg PO Q4H PRN PRN Reason: Moderate-Severe Pain Stop: 08/09/18 13:54 Last Admin: 07/26/18 14:44 Dose: 5 mg Documented by: [id number] Paroxetine HCl (Paroxetine Hcl) 10 mg PO QAM [facility] Stop: 08/26/18 08:59 Last Admin: 07/27/18 08:21 Dose: 10 mg Documented by: [id number] Polyethylene Glycol (Miralax Powder Packet) 17 gm PO Q6 [facility] Stop: 08/26/18 05:59 Last Admin: 07/27/18 06:04 Dose: 17 gm Documented by: [id number] Senna/Docusate Sodium (Senokot S) 2 tab PO HS [facility] Stop: 08/25/18 20:59 Last Admin: 07/26/18 20:38 Dose: 2 tab Documented by: [id number] Discontinued Medications Acetaminophen (Tylenol) 1,000 mg PO PREOP [facility] Stop: 07/26/18 18:00 Last Admin: 07/26/18 09:58 Dose: 1,000 mg Documented by: [id number] Bacitracin (Bacitracin) Confirm Administered Dose 50,000 units .ROUTE .STK-MED ONE Stop: 07/26/18 10:16 Last Admin: 07/26/18 11:12 Dose: 50,000 units Documented by: [id number] Bupivacaine HCl/Epinephrine Bitart (Sensorcaine/Epinephrine 0.5% Mpf 1:200,000) Confirm Administered Dose 30 ml .ROUTE .STK-MED ONE Stop: 07/26/18 10:16 Last Admin: 07/26/18 11:11 Dose: 19 ml Documented by: [id number] Celecoxib (Celebrex) 200 mg PO PREOP [facility] Stop: 07/26/18 18:00 Last Admin: 07/26/18 10:09 Dose: Not Given Documented by: [id number] Gabapentin (Neurontin) 600 mg PO PREOP [facility] Stop: 07/26/18 18:00 Last Admin: 07/26/18 10:09 Dose: Not Given Documented by: [id number] Lactated Ringer's (Lr) 1,000 mls @ 15 mls/hr IV .Q24H [facility] Stop: 07/27/18 05:59 Last Infusion: 07/26/18 14:05 Dose: 0 mls/hr Documented by: [id number] Admin: 07/26/18 10:07 Dose: 15 mls/hr Documented by: [id number] Cefazolin Sodium (Ancef 1000mg) 1,000 mg in 7.5 mls @ 2.5 mls/min IV PREOP [facility]; Protocol Stop: 07/26/18 18:00 Last Admin: 07/26/18 10:28 Dose: 2.5 mls/min Documented by: [id number] Lactated Ringer's (Lr) 1,000 mls @ 75 mls/hr IV .[id number] [facility] Stop: 08/25/18 14:04 Last Infusion: 07/27/18 06:16 Dose: 0 mls/hr Documented by: [id number] Admin: 07/27/18 02:16 Dose: 75 mls/hr Documented by: [id number] Infusion: 07/27/18 02:16 Dose: 75 mls/hr Documented by: [id number] Infusion: 07/26/18 22:33 Dose: 75 mls/hr Documented by: [id number] Admin: 07/26/18 13:40 Dose: 75 mls/hr Documented by: [id number] Cefazolin Sodium (Ancef 1000mg) 1,000 mg in 7.5 mls @ 150 mls/hr IV Q8H [facility]; Protocol Stop: 07/27/18 02:02 Last Admin: 07/27/18 02:15 Dose: 150 mls/hr Documented by: [id number] Admin: 07/26/18 18:31 Dose: 150 mls/hr Documented by: [id number] Miscellaneous (Floseal Hemostatic Matrix 10ml) 10 ml TOP ONCE ONE Stop: 07/26/18 11:05 Last Admin: 07/26/18 12:21 Dose: 7 ml Documented by: [id number]
--- NOTE | 2018-07-27 12:49 | Orthopedic Progress Note ---
Date of Service July 27, 2018 Assessment & Plan (1) Spinal stenosis, lumbar region with neurogenic claudication: Continue physical therapy discontinue drain over the next few days and is to discharge home this weekend. Present on Admission?: Yes Subjective Back pain is controlled leg symptoms improved. Physical Exam Physical Exam: Patient is in the chair at the bedside is good strength testing appears comfortable. Results & Data Vital Signs (Past 12 Hours) Vital Signs Temp Pulse Pulse Resp BP Pulse Ox 07/27/18 11:55 36.7 C 73 16 134/70 100 07/27/18 07:40 37.1 C 87 18 136/70 98 07/27/18 02:13 36.9 C 86 16 125/61 95
[2018-07-27] MEDS: ACETAMINOPHEN 500 MG TAB PO PRN (20:34)
[2018-07-27] MEDS: FUROSEMIDE 40 MG TAB PO SCH (21:00)
[2018-07-27] MEDS: AMLODIPINE BESYLATE 5 MG TAB PO SCH (21:01)
[2018-07-27] MEDS: DOCUSATE SODIUM/SENNA 50/8.6MG TAB PO SCH (21:02)
[2018-07-27] MEDS: SODIUM CHLORIDE 0.9% 1000ML 1,000 ML IV SCH (22:21)
--- NOTE | 2018-07-27 23:06 | XRay Report ---
XR chest 1V portable HISTORY: Abnormal chest x-ray. Follow-up. COMPARISON: Chest 07/12/2018. FINDINGS: The lungs are clear. Cardiac silhouette is normal in size. No pleural effusions. No pneumot horax. IMPRESSION: No acute process. Electronically signed by: Samir Guan M.D. 07/27/2018 11:05 PM
[2018-07-28] MEDS: LEVOTHYROXINE SODIUM 88 MCG TABLET PO SCH (05:34)
[2018-07-28] MEDS: POLYETHYLENE (MIRALAX) 17 GM PACK PO SCH (05:37)
[2018-07-28 06:33] LABS: Appearance Urine Clear (Clear); Bilirubin Urine Negative (Negative); Blood Urine Negative (Negative); Color Urine Yellow; Glucose Urine UA Negative (Negative); Ketones Urine Negative (Negative); Leukocyte Esterase Urine Negative (Negative); Nitrite Urine Negative (Negative); Protein Urine Negative (Negative); Specific Gravity Urine 1.012 (1.000-1.030); Urobilinogen Urine Negative (Negative)
[2018-07-28] MEDS: PARoxetine HCl 10 MG TAB PO SCH (08:51)
[2018-07-28] MEDS: ALPRAZolam 0.5 MG TABLET PO SCH ×2 (08:51→21:01)
[2018-07-28] MEDS: LACTOBACILLUS ACIDOPHILUS (FLORANEX) TAB PO SCH (08:51)
[2018-07-28] MEDS: guaiFENesin 600 MG TABCR PO SCH ×2 (08:51→20:56)
[2018-07-28] MEDS: ONDANSETRON INJ 2 MG/ML 2 ML VIAL IV PRN ×2 (10:20→15:51)
[2018-07-28 10:26] LABS: Hematocrit (blood only) 32.7 % (37-47); Hemoglobin 11.3 g/dL (12.0-16.0); Mean Corpuscular Hgb Conc 34.6 g/dL (32-36); Mean Corpuscular Volume 86.7 fL (80-100); Mean Platelet Volume 9.4 fL (7.4-10.4); Platelet Count 155 K/uL (130-400); RDW Coefficient of Variation 13.1 % (11.5-14.5); Red Blood Count 3.77 M/uL (4.2-5.4); White Blood Count 9.71 K/uL (4.8-10.8)
--- NOTE | 2018-07-28 10:39 | Hospitalist Progress Note ---
Date of Service July 28, 2018 Assessment & Plan (1) Spinal stenosis, lumbar region with neurogenic claudication: S/P Lumbar Decompression/Fusion L3-S1 by Dr. John POD #2 Wound/pain management per ortho activity and therapy as directed by ortho dvt ppx as directed by ortho incentive spirometry follow cbc for abl anemia (2) Acute blood loss anemia: Monitor CBC (3) Hypertension: Blood pressure currently 138/87 continue amlodipine at HS will resume lasix (4) Hypothyroidism: Continue levothyroxine (5) Anxiety and depression: Mood is stable continue as needed Xanax and daily Paxil (6) DVT prophylaxis: SCSD/TEDS, per ortho Disposition: per primary Follow up: PCP at [facility] upon discharge This patient with pre-op diagnosis of Lumbar spinal stenosis with radiculopathy Actual Procedures #1 removal of posterior instrumentation L3-4 L4-5. #2 exploration of fusion L3- 4 L4-5 per #3 lumbar decompression bilateral medial facetectomies foraminotomies L5-S1. #4 posterior spinal fusion L3-4 L4-5 L5-S1. #5 placement of posterior segmental instrumentation L3-4 L4-5 5 S1. #6 interbody fusion L5-S1 per #7 placement of peek cage 12 x 22 mm at L5-S1. #8 placement of local autograft in the posterior lateral gutters. #9 placement infuse collagen sponge, mass graft in the posterior gutters and ostial amp and interbody space. Resume Post Op Care per Surgery Protocol Incentive Spirometry 10x per Hour Resume Relative Home Meds Where Appropriate PT/OT with appropriate fall precautions Transition from IV to PO Pain control DVT Prophylaxis Per Surgery Protocol Monitor Daily Labs Patient was a little confused today per RN, when I saw her she was fine and com plaining of some mild back pain ROS-No Headache, No Visual Changes, No Nausea, No Vomiting, No Fever, No Chills, No Neck Pain or Stiffness, No Chest Pain, No Palpitations, No SOB, No JONES, No Cough, No Sputum, No Wheezing, No Abdominal Pain, No Diarrhea, No Hematemesis, No Hemoptysis, No Unexpected Weight Loss, No Flank pain, No Melena, No Hematochezia, No Frequency, No Urgency, No Burning, No Hematuria, No Rashes, No Diaphoresis. Appetite is Normal, C/O sore Back, not too bad Physical Exam Gen-AAO x 3, NAD, Afebrile Head-NCAT, EOMI, PERRLA, Anicteric Sclera, No Posterior Pharyngeal Erythema Neck-Supple, No JVD, No Thyromegaly, No Masses, No LAD, No Bruits Lungs-Clear to Auscultation Bilaterally, No Rales, No Rhonchi, No Wheezing, No Crepitus Chest-No S4, +S1, +S2, No S3, No Murmurs, No Rubs, No Gallops, No Ectopy Abdomen-Soft, Bowel Sounds Present, Non Tender, Non Distended, No Hepatomegaly, No Splenomegaly, No Palpable Masses, No Rebound, No Rigidity, No Guarding Musculoskeletal-Full Range of Motion Bilaterally, No CVAT Extremities-No Cyanosis, No Clubbing, No Edema Nuero-Cranial Nerves II-XII grossly intact, Motor WNL, DTRs WNL, Strength WNL, Non Focal Psych-Normal Mood Results & Data Vital Signs (Past 12 Hours) Vital Signs Temp Pulse Pulse Resp BP Pulse Ox 07/28/18 08:49 36.9 C 98 H 16 138/87 96 07/28/18 06:25 37.2 C 07/28/18 06:10 37.8 C H 96 H 16 145/69 H 97 07/27/18 23:32 36.7 C 96 H 18 131/75 96 07/27/18 22:40 38.1 C H Labs reviewed
[2018-07-28 11:02] LABS: Calcium 8.7 mg/dl (8.5-10.1); Creatinine Clr Calc Pharmacy 43.4 ml/min; Est GFR (African American) 75.6; Est GFR (Non-African American) 65.2; Potassium 3.1 mmol/L (3.5-5.1)
--- NOTE | 2018-07-28 11:17 | Orthopedic Progress Note ---
Date of Service July 28, 2018 Assessment & Plan (1) Spinal stenosis, lumbar region with neurogenic claudication: This time we will continue physical therapy. I would like to assess her for possible rehab placement tomorrow. Present on Admission?: Yes Subjective Patient's back pain is controlled leg symptoms improved. Physical Exam Physical Exam: On exam she has good strength testing. Appears comfortable. Results & Data Vital Signs (Past 12 Hours) Vital Signs Temp Pulse Pulse Resp BP Pulse Ox 07/28/18 08:49 36.9 C 98 H 16 138/87 96 07/28/18 06:25 37.2 C 07/28/18 06:10 37.8 C H 96 H 16 145/69 H 97 07/27/18 23:32 36.7 C 96 H 18 131/75 96
[2018-07-28] MEDS: SODIUM CHLORIDE 0.9% 1000ML 1,000 ML IV SCH (11:57)
[2018-07-28] MEDS: ACETAMINOPHEN 1,000 MG/100 ML VIAL IV PRN (15:51)
[2018-07-28] MEDS ORDERED: POTASSIUM CHLORIDE 40 MEQ in SODIUM CHLORIDE 0.9% 1000ML 1,000 ML IV SCH (16:30)
[2018-07-28] MEDS ORDERED: CEFEPIME CONSULT ACTIVE PRN (16:31)
[2018-07-28] MEDS ORDERED: VANCOMYCIN CONSULT ACTIVE PRN (16:32)
--- NOTE | 2018-07-28 16:38 | XRay Report ---
XR KUB/Abdomen 1 view CLINICAL HISTORY: vomiting, post-op, eval for ileus COMPARISON STUDY: None FINDINGS: Postsurgical changes are present within the lower lumbar spine. There is no pathologic meli l dilatation. There are no transition zones indicate bowel obstruction. There are no calcifications s uspicious for urinary tract calculi. IMPRESSION: No evidence of pathologic bowel dilatation. Electronically signed by: Raj Inman M.D. 07/28/2018 4:37 PM
[2018-07-28] MEDS: CEFEPIME 2,000 MG in SYRINGE 7.5 ML IV SCH (16:56)
[2018-07-28] MEDS ORDERED: VANCOMYCIN HCL 1,500 MG in SODIUM CHLORIDE 0.9% 500 ML IV SCH (17:00)
[2018-07-28] MEDS ORDERED: OPTIRAY 320 125ml IV PRN (17:41)
--- NOTE | 2018-07-28 17:51 | CT Scan Report ---
CT head/brain wo con CLINICAL HISTORY: headache, nausea COMPARISON STUDY: No previous studies for comparison. TECHNIQUE: Axial CT of the brain is performed from the vertex to the skull base. IV contrast was not administered for this examination. A dose lowering technique was utilized adhering to the principles of ALARA. CT DOSE: FINDINGS: No intra or extra-axial mass lesions are visualized. There is no CT evidence of acute cortical infarc tion. There is no evidence of midline shift. There is no acute hemorrhage. No calvarial fractures ar e visualized. There are patchy white matter hypodensities likely on a small vessel basis. There is no evidence of pathologic ventricular dilatation. There is no evidence of acute sinusitis. There is metallic artifact from a presumed [place] of [place] aneurysm embolization. IMPRESSION: No acute intracranial findings Electronically signed by: Raj Inman M.D. 07/28/2018 5:50 PM
--- NOTE | 2018-07-28 17:56 | CT Scan Report ---
CT ANGIOGRAM OF THE CHEST CLINICAL HISTORY: Atypical chest pain, nausea. Shortness of breath. COMPARISON STUDY: Chest x-ray dated 07/27/2018 TECHNIQUE: Following the IV administration of 119 mL of Optiray-320, CT angiogram of the thorax was p erformed from the thoracic inlet to the lung bases utilizing the pulmonary embolus protocol. Images a re reviewed in the axial, sagittal, and coronal planes. IV contrast was administered without complica tion. MIP imaging was performed. A dose lowering technique was utilized adhering to the principles o f ALARA. CT DOSE: 817.67 mGy.cm FINDINGS: No pathologically enlarged axillary mediastinal or hilar lymph nodes were visualized. There was no evidence of thoracic aortic dilatation. The heart is normal in size with mild coronary artery calcifications There were no pulmonary artery filling defects to indicate acute pulmonary embolism. No pleural effusions are visualized. There is mild biapical scarring. There is no focal pulmonary consolidation. There is no pneumothorax. IMPRESSION: 1. No acute intrathoracic findings 2. No evidence of acute pulmonary embolism 3. No evidence of focal pulmonary consolidation 4. No evidence of pathologic adenopathy Electronically signed by: Raj Inman M.D. 07/28/2018 5:55 PM
[2018-07-28] MEDS: FUROSEMIDE 40 MG TAB PO SCH (20:55)
[2018-07-28] MEDS: AMLODIPINE BESYLATE 5 MG TAB PO SCH (20:55)
[2018-07-28] MEDS: DOCUSATE SODIUM/SENNA 50/8.6MG TAB PO SCH (20:57)
[2018-07-28] MEDS: OXYCODONE HCL IR 5 MG TAB (IMMEDIATE RELEASE) PO PRN (23:31)
[2018-07-28] MEDS: ACETAMINOPHEN 500 MG TAB PO PRN (23:32)
[2018-07-29] MEDS: SODIUM CHLORIDE 0.9% 1000ML 1,000 ML IV SCH ×2 (02:15→05:52)
[2018-07-29 05:50] LABS: Hematocrit (blood only) 29.8 % (37-47); Hemoglobin 10.2 g/dL (12.0-16.0); Mean Corpuscular Hgb Conc 34.2 g/dL (32-36); Mean Corpuscular Volume 86.9 fL (80-100); Mean Platelet Volume 9.6 fL (7.4-10.4); Platelet Count 151 K/uL (130-400); RDW Standard Deviation 41.4 fL (36.4-46.3); Red Blood Count 3.43 M/uL (4.2-5.4); White Blood Count 9.66 K/uL (4.8-10.8)
[2018-07-29] MEDS: CEFEPIME 2,000 MG in SYRINGE 7.5 ML IV SCH ×2 (05:52→16:44)
[2018-07-29] MEDS: LEVOTHYROXINE SODIUM 88 MCG TABLET PO SCH (05:52)
[2018-07-29 06:21] LABS: BUN Creatinine Ratio 7.7 (10-20); Calcium 8.1 mg/dl (8.5-10.1); Creatinine Clr Calc Pharmacy 48.7 ml/min; Est GFR (African American) 86.8; Est GFR (Non-African American) 74.9; Potassium 2.9 mmol/L (3.5-5.1)
[2018-07-29] MEDS: PARoxetine HCl 10 MG TAB PO SCH (08:25)
[2018-07-29] MEDS: guaiFENesin 600 MG TABCR PO SCH ×2 (08:25→20:56)
[2018-07-29] MEDS: ALPRAZolam 0.5 MG TABLET PO SCH ×2 (08:25→20:56)
[2018-07-29] MEDS: LACTOBACILLUS ACIDOPHILUS (FLORANEX) TAB PO SCH (08:25)
--- NOTE | 2018-07-29 08:26 | Hospitalist Progress Note ---
Date of Service July 29, 2018 Assessment & Plan (1) Spinal stenosis, lumbar region with neurogenic claudication: S/P Lumbar Decompression/Fusion L3-S1 by Dr. John POD #3 Wound/pain management per ortho activity and therapy as directed by ortho dvt ppx as directed by ortho incentive spirometry follow cbc for abl anemia Fever/Tachycardia yesterday, Pancultured, CTA Chest neg for PE, Cx neg, Spirometry ordered, Duoneb x 48 hrs ATC then Prn (2) Acute blood loss anemia: Monitor CBC (3) Hypertension: Blood pressure up continue amlodipine at HS Lasix (4) Hypothyroidism: Continue Levothyroxine (5) Anxiety and depression: Mood is stable continue as needed Xanax and daily Paxil (6) DVT prophylaxis: SCSD/TEDS, per ortho Disposition: per primary Follow up: PCP at [facility] upon discharge This patient with pre-op diagnosis of Lumbar spinal stenosis with radiculopathy Actual Procedures #1 removal of posterior instrumentation L3-4 L4-5. #2 exploration of fusion L3- 4 L4-5 per #3 lumbar decompression bilateral medial facetectomies foraminotomies L5-S1. #4 posterior spinal fusion L3-4 L4-5 L5-S1. #5 placement of posterior segmental instrumentation L3-4 L4-5 5 S1. #6 interbody fusion L5-S1 per #7 placement of peek cage 12 x 22 mm at L5-S1. #8 placement of local autograft in the posterior lateral gutters. #9 placement infuse collagen sponge, mass graft in the posterior gutters and ostial amp and interbody space. Resume Post Op Care per Surgery Protocol Incentive Spirometry 10x per Hour Resume Relative Home Meds Where Appropriate PT/OT PO Pain control DVT Prophylaxis Per Surgery Protocol Monitor Daily Labs Feeling much better, Dtr at bedside and updated, DC when Afeb 24-48 hrs ROS-No Headache, No Visual Changes, No Nausea, No Vomiting, No Fever, No Chills, No Neck Pain or Stiffness, No Chest Pain, No Palpitations, No SOB, No JONES, No Cough, No Sputum, No Wheezing, No Abdominal Pain, No Diarrhea, No Hematemesis, No Hemoptysis, No Unexpected Weight Loss, No Flank pain, No Melena, No Hematochezia, No Frequency, No Urgency, No Burning, No Hematuria, No Rashes, No Diaphoresis. Appetite is Normal, C/O sore Back, daily improvement Physical Exam Gen-AAO x 3, NAD, Febrile Head-NCAT, EOMI, PERRLA, Anicteric Sclera, No Posterior Pharyngeal Erythema Neck-Supple, No JVD, No Thyromegaly, No Masses, No LAD, No Bruits Lungs-Clear to Auscultation Bilaterally, No Rales, No Rhonchi, No Wheezing, No Crepitus Chest-No S4, +S1, +S2, No S3, No Murmurs, No Rubs, No Gallops, No Ectopy Abdomen-Soft, Bowel Sounds Present, Non Tender, Non Distended, No Hepatomegaly, No Splenomegaly, No Palpable Masses, No Rebound, No Rigidity, No Guarding Musculoskeletal-Full Range of Motion Bilaterally, No CVAT Extremities-No Cyanosis, No Clubbing, No Edema Nuero-Cranial Nerves II-XII grossly intact, Motor WNL, DTRs WNL, Strength WNL, Non Focal Psych-Normal Mood Results & Data Vital Signs (Past 12 Hours) Vital Signs Temp Pulse Pulse Resp BP Pulse Ox 07/29/18 07:54 36.9 C 78 12 156/70 H 98 07/29/18 00:30 37 C 99 H 18 127/79 93 07/28/18 23:22 37.8 C H 107 H 18 179/91 H 97 07/28/18 20:51 36.8 C 102 H 168/84 H 95 Current Diagnoses Acute posthemorrhagic anemia (07/26/18) Hypothyroidism, unspecified (07/26/18) Major depressive disorder, single episode, unspecified (07/26/18) Anxiety disorder, unspecified (07/26/18) Essential (primary) hypertension (07/26/18) Spinal stenosis, lumbar region with neurogenic claudication (07/26/18) Encounter for other preprocedural examination (07/26/18) Allergies celecoxib Adverse Reaction (Severe, Verified 07/26/18 09:26) ABDOMINAL PAIN naproxen Adverse Reaction (Severe, Verified 07/26/18 09:26) ABDOMINAL PAIN propoxyphene Adverse Reaction (Severe, Verified 07/26/18 09:26) ABDOMINAL PAIN cyclosporine Adverse Reaction (Intermediate, Verified 07/26/18 09:26) EXCESSIVE EYE BURNING tramadol Adverse Reaction (Intermediate, Verified 07/26/18 09:26) ABDOMINAL PAIN terbinafine Adverse Reaction (Mild, Verified 07/26/18 09:26) Nausea BANDAGES Allergy (Unknown, Uncoded 07/26/18 09:26) "TEARS SKIN OFF" Height/Weight/Isolation Height 5 ft 3.5 in Weight 56.8 kg Chemistry 07/28/18 07/29/18 10:12 05:28 Sodium 135 L 139 Potassium 3.1 L D 2.9 L Chloride 98 103 Carbon Dioxide 29 29 Anion Gap 7.0 7.0 BUN 4 L 6 L Creatinine 0.83 0.74 Glucose 115 H 100 H Urinalysis 07/28/18 06:05 Urine Color Yellow Urine Appearance Clear Urine pH 6.0 Ur Specific [place] 1.012 Urine Protein Negative Urine Glucose (UA) Negative Urine Ketones Negative Urine Blood Negative Urine Nitrite Negative Urine Bilirubin Negative Microbiology 07/27/18 22:37 Blood Aerobic Blood Culture - Preliminary No growth in Aerobic bottle after 24 hours. 07/27/18 22:37 Blood Anaerobic Blood Culture - Preliminary No growth in Anaerobic bottle after 24 hours. 07/27/18 22:31 Blood Aerobic Blood Culture - Preliminary No growth in Aerobic bottle after 24 hours. 07/27/18 22:31 Blood Anaerobic Blood Culture - Preliminary No growth in Anaerobic bottle after 24 hours.
[2018-07-29] MEDS: VANCOMYCIN HCL 750 MG in SODIUM CHLORIDE 0.9% 250 ML IV SCH (10:17)
--- NOTE | 2018-07-29 10:41 | Pharmacy Report ---
Pharmacy Abx Initial Consult - Date of Service July 29, 2018 - Pharmacy Dosing Scope Date of Consult: 07/28/18 Consultation requested by: Gillian Montalvo PA-C Pharmacy is consulted to initiate Vancomycin IV dosing therapy, order appropriate labs and adjust drug dose/frequency. - Subjective The patient is a 82 year old F admitted on 07/26/18 12:35. - Objective Height: 5 ft 3.5 in Weight: 56.8 kg Vital Signs (Past 12hrs): Vital Signs Temp Pulse Pulse Resp BP Pulse Ox 07/29/18 07:54 36.9 C 78 12 156/70 H 98 07/29/18 00:30 37 C 99 H 18 127/79 93 07/28/18 23:22 37.8 C H 107 H 18 179/91 H 97 Lab Results (24hrs): Laboratory Tests (24 Hours) 07/29/18 07/29/18 07/28/18 05:28 05:28 16:39 WBC 9.66 Creatinine 0.74 Est Cr Clr Drug Dosing 48.7 Procalcitonin 0.09 07/28/18 10:12 WBC Creatinine 0.83 Est Cr Clr Drug Dosing 43.4 Procalcitonin Micro Results: 07/29/18 08:25 Urine Culture - Pending Urine,Clean Catch 07/12/18 12:09 Urine Culture - Final Urine,Clean Catch Gardnerella-like bacilli - Assessment & Plan Assessment 82 year old F admitted for Lumbar fusion surgery with Dr. John. POD #3. Patient spiked fevers yesterday. Pharmacy consulted to dose Vancomycin and Cefepime. Blood and Urine cultures pending. Plan Vancomycin IV * Estimated PK Parameters: Vd 0.7 L/kg, Michael 0.040 hr-1, t1/2 17 hr * Loading dose: 1500 mg (26 mg/kg) x 1 given at 1800 yesterday. * Maintenance dose: 750 mg IV (13 mg/kg) every 18 hours ordered to start this AM. * Goal trough level for SSTI: 12 to 20 mcg/mL * Trough level ordered for 07/30/18 before dose at 2200 after 2 maintenance doses. Pharmacy will continue to follow and will adjust dose/frequency as necessary. Thank you.
[2018-07-29] MEDS ORDERED: ALBUT/IPRATROP 3MG/0.5MG NEB 3 ML VIAL NEB SCH (12:00)
[2018-07-29] MEDS: ACETAMINOPHEN 1,000 MG/100 ML VIAL IV PRN (12:42)
[2018-07-29] MEDS ORDERED: DEXAMETHASONE SOD PHOSPHATE 6 MG in SYRINGE 0 ML IV ONE (14:00)
[2018-07-29] MEDS: ALBUT/IPRATROP 3MG/0.5MG NEB 3 ML VIAL NEB SCH ×2 (15:22→20:21)
--- NOTE | 2018-07-29 15:42 | Orthopedic Progress Note ---
Date of Service July 29, 2018 Assessment & Plan (1) Spinal stenosis, lumbar region with neurogenic claudication: This time we will continue physical therapy and considering rehab placement tomorrow. Present on Admission?: Yes Subjective Back and leg pain improved Physical Exam Physical Exam: Patient is sitting up at the bedside is good strength testing. Results & Data Vital Signs (Past 12 Hours) Vital Signs Temp Pulse Pulse Resp BP Pulse Ox 07/29/18 15:37 36.7 C 79 19 100/57 L 94 07/29/18 15:24 84 18 97 07/29/18 12:03 36.8 C 97 H 22 160/74 H 97 07/29/18 11:11 69 14 95 07/29/18 07:54 36.9 C 78 12 156/70 H 98
[2018-07-29] MEDS: AMLODIPINE BESYLATE 5 MG TAB PO SCH (20:57)
[2018-07-29] MEDS: FUROSEMIDE 40 MG TAB PO SCH (20:58)
[2018-07-29] MEDS: DOCUSATE SODIUM/SENNA 50/8.6MG TAB PO SCH (20:58)
[2018-07-30] MEDS: LORazepam 0.5 MG TAB PO PRN (02:43)
[2018-07-30] MEDS ORDERED: VANCOMYCIN TROUGH ONE ×2 (03:30→21:30)
[2018-07-30] MEDS: SODIUM CHLORIDE 0.9% 1000ML 1,000 ML IV SCH (04:29)
[2018-07-30] MEDS: VANCOMYCIN HCL 750 MG in SODIUM CHLORIDE 0.9% 250 ML IV SCH (04:29)
[2018-07-30] MEDS: CEFEPIME 2,000 MG in SYRINGE 7.5 ML IV SCH (04:30)
[2018-07-30] MEDS: LEVOTHYROXINE SODIUM 88 MCG TABLET PO SCH (05:57)
[2018-07-30] MEDS: OXYCODONE HCL IR 5 MG TAB (IMMEDIATE RELEASE) PO PRN ×2 (06:23→17:18)
[2018-07-30] MEDS: ALBUT/IPRATROP 3MG/0.5MG NEB 3 ML VIAL NEB SCH ×4 (07:15→19:32)
[2018-07-30 07:19] LABS: Albumin Level 2.6 gm/dl (3.4-5.0); Calcium 8.3 mg/dl (8.5-10.1); Creatinine Clr Calc Pharmacy 49.4 ml/min; Est GFR (African American) 88.3; Est GFR (Non-African American) 76.2; Potassium 2.7 mmol/L (3.5-5.1)
[2018-07-30 07:22] LABS: Albumin Globulin Ratio 0.7 (0.9-2); Bilirubin,Total 0.7 mg/dl (0.2-1); Globulin 3.5 gm/dl (2.5-4.0); Total Protein 6.1 gm/dl (6.4-8.2)
--- NOTE | 2018-07-30 07:37 | Hospitalist Progress Note ---
Date of Service July 30, 2018 Assessment & Plan (1) Spinal stenosis, lumbar region with neurogenic claudication: S/P Lumbar Decompression/Fusion L3-S1 by Dr. John POD #4 Wound/pain management per ortho activity and therapy as directed by ortho dvt ppx as directed by ortho incentive spirometry follow cbc for abl anemia Fever/Tachycardia Resolved, Pancultured, CTA Chest neg for PE, Cx neg, Spirometry ordered, Duoneb DC today from IM standpoint, Stop Abx, DC after K Riders later today (2) Acute blood loss anemia: Stable (3) Hypertension: Blood Great (4) Hypothyroidism: Continue Levothyroxine (5) Anxiety and depression: Mood is stable continue as needed Xanax and daily Paxil (6) DVT prophylaxis: SCSD/TEDS, per ortho Disposition: per primary Follow up: PCP at [facility] upon discharge This patient with pre-op diagnosis of Lumbar spinal stenosis with radiculopathy Actual Procedures #1 removal of posterior instrumentation L3-4 L4-5. #2 exploration of fusion L3- 4 L4-5 per #3 lumbar decompression bilateral medial facetectomies foraminotomies L5-S1. #4 posterior spinal fusion L3-4 L4-5 L5-S1. #5 placement of posterior segmental instrumentation L3-4 L4-5 5 S1. #6 interbody fusion L5-S1 per #7 placement of peek cage 12 x 22 mm at L5-S1. #8 placement of local autograft in the posterior lateral gutters. #9 placement infuse collagen sponge, mass graft in the posterior gutters and ostial amp and interbody space. Resume Post Op Care per Surgery Protocol Incentive Spirometry 10x per Hour Resume Relative Home Meds Where Appropriate PT/OT PO Pain control DVT Prophylaxis Per Surgery Protocol DC today from IM standpoint after K, will Rx K on DC ROS-No Headache, No Visual Changes, No Nausea, No Vomiting, No Fever, No Chills, No Neck Pain or Stiffness, No Chest Pain, No Palpitations, No SOB, No JONES, No Cough, No Sputum, No Wheezing, No Abdominal Pain, No Diarrhea, No Hematemesis, No Hemoptysis, No Unexpected Weight Loss, No Flank pain, No Melena, No Hematochezia, No Frequency, No Urgency, No Burning, No Hematuria, No Rashes, No Diaphoresis. Appetite is Normal, C/O sore Back, daily improvement Physical Exam Gen-AAO x 3, NAD, Afebrile Head-NCAT, EOMI, PERRLA, Anicteric Sclera, No Posterior Pharyngeal Erythema Neck-Supple, No JVD, No Thyromegaly, No Masses, No LAD, No Bruits Lungs-Clear to Auscultation Bilaterally, No Rales, No Rhonchi, No Wheezing, No Crepitus Chest-No S4, +S1, +S2, No S3, No Murmurs, No Rubs, No Gallops, No Ectopy Abdomen-Soft, Bowel Sounds Present, Non Tender, Non Distended, No Hepatomegaly, No Splenomegaly, No Palpable Masses, No Rebound, No Rigidity, No Guarding Musculoskeletal-Full Range of Motion Bilaterally, No CVAT Extremities-No Cyanosis, No Clubbing, No Edema Nuero-Cranial Nerves II-XII grossly intact, Motor WNL, DTRs WNL, Strength WNL, Non Focal Psych-Normal Mood Results & Data Vital Signs (Past 12 Hours) Vital Signs Temp Pulse Pulse Pulse Resp BP BP 07/30/18 07:26 36.7 C 90 18 112/62 07/30/18 07:17 73 16 07/29/18 23:00 37 C 102 H 20 129/76 07/29/18 20:54 36.5 C 120 H 18 120/66 07/29/18 20:21 101 H 18 Pulse Ox 07/30/18 07:26 95 07/30/18 07:17 96 07/29/18 23:00 98 07/29/18 20:54 98 07/29/18 20:21 98
[2018-07-30] MEDS ORDERED: POTASSIUM CHLORIDE 20 MEQ/15 ML UDC PO STA (07:40)
[2018-07-30] MEDS: POTASSIUM ACETATE 10 MEQ in 0.9 % SODIUM CHLORIDE 100 ML IV SCH ×4 (08:16→11:44)
[2018-07-30] MEDS: LACTOBACILLUS ACIDOPHILUS (FLORANEX) TAB PO SCH (08:17)
[2018-07-30] MEDS: PARoxetine HCl 10 MG TAB PO SCH (08:17)
[2018-07-30] MEDS: ALPRAZolam 0.5 MG TABLET PO SCH ×2 (08:17→20:35)
[2018-07-30] MEDS: guaiFENesin 600 MG TABCR PO SCH ×2 (08:17→20:35)
--- NOTE | 2018-07-30 08:33 | Orthopedic Progress Note ---
Date of Service July 30, 2018 Assessment & Plan (1) Spinal stenosis, lumbar region with neurogenic claudication: At this point time we are currently awaiting insurance authorization for discharge to [facility] rehab. This can be done as early as today. Will remove JO ANN drain prior to discharge. Continue with aggressive bowel regimen. Supervising Physician Co-Signing Physician Notes Dr. Jay John Subjective Patient is postoperative day for lumbar decompression fusion. She is doing well. Leg pain improved. Back pain controlled. Biggest complaint is some abdominal discomfort. She is passing flatus but no bowel movement. Yesterday in physical therapy ambling roughly 150 feet. Review of Systems Review of Systems: All systems reviewed & are unremarkable except as noted in HPI & below Physical Exam Physical Exam: She sitting in the bathroom doing her hair and applying make- up. No obvious distress. Alert and oriented x3. Calf is soft nontender bilaterally. Bilateral lower extremities neurovascular intact. Lumbar dressing is clean dry and intact. Results & Data Vital Signs (Past 12 Hours) Vital Signs Temp Pulse Pulse Pulse Resp BP BP 07/30/18 07:26 36.7 C 90 18 112/62 07/30/18 07:17 73 16 07/29/18 23:00 37 C 102 H 20 129/76 07/29/18 20:54 36.5 C 120 H 18 120/66 Pulse Ox 07/30/18 07:26 95 07/30/18 07:17 96 07/29/18 23:00 98 07/29/18 20:54 98
[2018-07-30] MEDS ORDERED: TEMAZEPAM 15 MG CAPSULE PO PRN (14:52)
[2018-07-30] MEDS: DOCUSATE SODIUM/SENNA 50/8.6MG TAB PO SCH (20:35)
[2018-07-30] MEDS: AMLODIPINE BESYLATE 5 MG TAB PO SCH (20:35)
[2018-07-30] MEDS: FUROSEMIDE 40 MG TAB PO SCH (20:37)
[2018-07-31] MEDS: LEVOTHYROXINE SODIUM 88 MCG TABLET PO SCH (05:28)
[2018-07-31] MEDS: ALBUT/IPRATROP 3MG/0.5MG NEB 3 ML VIAL NEB SCH (07:24)
--- NOTE | 2018-07-31 07:44 | Hospitalist Progress Note ---
Date of Service July 31, 2018 Assessment & Plan (1) Spinal stenosis, lumbar region with neurogenic claudication: S/P Lumbar Decompression/Fusion L3-S1 by Dr. John POD #5 Wound/pain management per ortho activity and therapy as directed by ortho dvt ppx as directed by ortho incentive spirometry follow cbc for abl anemia Fever/Tachycardia Resolved, Pancultured, CTA Chest neg for PE, Cx neg, Spirometry ordered, Duoneb DC today from IM standpoint, Stop Abx, recheck labs today (2) Acute blood loss anemia: Stable (3) Hypertension: Blood Great (4) Hypothyroidism: Continue Levothyroxine (5) Anxiety and depression: Mood is stable continue as needed Xanax and daily Paxil (6) DVT prophylaxis: SCSD/TEDS, per ortho Disposition: per primary Follow up: PCP at [facility] upon discharge This patient with pre-op diagnosis of Lumbar spinal stenosis with radiculopathy Actual Procedures #1 removal of posterior instrumentation L3-4 L4-5. #2 exploration of fusion L3- 4 L4-5 per #3 lumbar decompression bilateral medial facetectomies foraminotomies L5-S1. #4 posterior spinal fusion L3-4 L4-5 L5-S1. #5 placement of posterior segmental instrumentation L3-4 L4-5 5 S1. #6 interbody fusion L5-S1 per #7 placement of peek cage 12 x 22 mm at L5-S1. #8 placement of local autograft in the posterior lateral gutters. #9 placement infuse collagen sponge, mass graft in the posterior gutters and ostial amp and interbody space. Resume Post Op Care per Surgery Protocol Incentive Spirometry 10x per Hour Resume Relative Home Meds Where Appropriate PT/OT PO Pain control DVT Prophylaxis Per Surgery Protocol DC today from IM standpoint K script for DC ROS-No Headache, No Visual Changes, No Nausea, No Vomiting, No Fever, No Chills, No Neck Pain or Stiffness, No Chest Pain, No Palpitations, No SOB, No JONES, No Cough, No Sputum, No Wheezing, No Abdominal Pain, No Diarrhea, No Hematemesis, No Hemoptysis, No Unexpected Weight Loss, No Flank pain, No Melena, No Hematochezia, No Frequency, No Urgency, No Burning, No Hematuria, No Rashes, No Diaphoresis. Appetite is Normal, C/O sore Back, daily improvement Physical Exam Gen-AAO x 3, NAD, Afebrile Head-NCAT, EOMI, PERRLA, Anicteric Sclera, No Posterior Pharyngeal Erythema Neck-Supple, No JVD, No Thyromegaly, No Masses, No LAD, No Bruits Lungs-Clear to Auscultation Bilaterally, No Rales, No Rhonchi, No Wheezing, No Crepitus Chest-No S4, +S1, +S2, No S3, No Murmurs, No Rubs, No Gallops, No Ectopy Abdomen-Soft, Bowel Sounds Present, Non Tender, Non Distended, No Hepatomegaly, No Splenomegaly, No Palpable Masses, No Rebound, No Rigidity, No Guarding Musculoskeletal-Full Range of Motion Bilaterally, No CVAT Extremities-No Cyanosis, No Clubbing, No Edema Nuero-Cranial Nerves II-XII grossly intact, Motor WNL, DTRs WNL, Strength WNL, Non Focal Psych-Normal Mood Results & Data Vital Signs (Past 12 Hours) Vital Signs Temp Pulse Pulse Pulse Resp BP BP 07/31/18 07:25 85 16 07/31/18 06:10 36.8 C 80 16 148/74 H 07/30/18 23:05 37.4 C 89 16 123/70 07/30/18 20:32 100 H 109/60 Pulse Ox 07/31/18 07:25 94 07/31/18 06:10 95 07/30/18 23:05 95 07/30/18 20:32
[2018-07-31 08:51] LABS: Hematocrit (blood only) 31.6 % (37-47); Mean Corpuscular Hgb Conc 34.8 g/dL (32-36); Mean Corpuscular Volume 87.1 fL (80-100); Mean Platelet Volume 9.3 fL (7.4-10.4); Platelet Count 250 K/uL (130-400); RDW Coefficient of Variation 13.1 % (11.5-14.5); RDW Standard Deviation 42.3 fL (36.4-46.3); Red Blood Count 3.63 M/uL (4.2-5.4); White Blood Count 10.88 K/uL (4.8-10.8)
--- NOTE | 2018-07-31 08:53 | Orthopedic Progress Note ---
Date of Service July 31, 2018 Assessment & Plan (1) Spinal stenosis, lumbar region with neurogenic claudication: At this point time we are currently awaiting insurance authorization for discharge to [facility] rehab. To my knowledge is is tentatively scheduled for tomorrow. Continue with aggressive bowel regimen. Continue with physical therapy. Continue with pain control. Supervising Physician Co-Signing Physician Notes Dr. Jay John Subjective She complains of a slight sore throat and cough this morning. She has been using her incentive spirometer. She reports she is had a bowel movement. Back and leg pain improved Review of Systems Review of Systems: All systems reviewed & are unremarkable except as noted in HPI & below Physical Exam Physical Exam: She is lying in bed alert and oriented x3. No obvious distress. Lumbar dressing is clean dry and intact. Lower extremity neurovascular intact. Calves are soft nontender bilaterally. Results & Data Vital Signs (Past 12 Hours) Vital Signs Temp Pulse Pulse Pulse Resp BP BP 07/31/18 07:25 85 16 07/31/18 06:10 36.8 C 80 16 148/74 H 07/30/18 23:05 37.4 C 89 16 123/70 Pulse Ox 07/31/18 07:25 94 07/31/18 06:10 95 07/30/18 23:05 95
[2018-07-31 09:10] LABS: BUN Creatinine Ratio 12.5 (10-20); Calcium 9.2 mg/dl (8.5-10.1); Creatinine Clr Calc Pharmacy 36.8 ml/min; Est GFR (African American) 61.8; Est GFR (Non-African American) 53.3; Potassium 3.3 mmol/L (3.5-5.1)
[2018-07-31 09:14] LABS: ALC (manual) 3.04 K/uL (1.2-3.4); Basophils % (manual) 0.9 %; Eosinophils # (manual) 0.28 K/uL (0-0.5); Eosinophils % (manual) 2.6 %; Lymphocytes # (manual) 1.71 K/uL (1.2-3.4); Lymphocytes % (manual) 15.7 %; Monocytes # (manual) 1.13 K/uL (0.11-0.59); Monocytes % (manual) 10.4 %; Myelocytes % (manual) 0.9 %; Neutrophils % (manual) 57.3 %; RBC Morphology Unremarkable; Reactive Lymphocytes # (manual) 1.33 K/uL
[2018-07-31] MEDS ORDERED: COUGH DROP (SUGAR FREE) LOZ 24 LOZ/1 BOX BUCCAL STA (09:15)
[2018-07-31] MEDS ORDERED: COUGH DROP (SUGAR FREE) LOZ 24 LOZ/1 BOX BUCCAL ONE (09:17)
[2018-07-31] MEDS: guaiFENesin 600 MG TABCR PO SCH ×2 (09:17→20:18)
[2018-07-31] MEDS: PARoxetine HCl 10 MG TAB PO SCH (09:17)
[2018-07-31] MEDS: ALPRAZolam 0.5 MG TABLET PO SCH ×2 (09:17→20:18)
[2018-07-31] MEDS: LACTOBACILLUS ACIDOPHILUS (FLORANEX) TAB PO SCH (09:17)
[2018-07-31] MEDS ORDERED: ALBUT/IPRATROP 3MG/0.5MG NEB 3 ML VIAL NEB PRN (12:00)
[2018-07-31] MEDS ORDERED: POTASSIUM CHLORIDE 20 MEQ TABCR PO STA (12:51)
[2018-07-31] MEDS: POTASSIUM CHLORIDE / WTR 10 MEQ/100 ML PLCT IV SCH ×4 (13:20→16:29)
[2018-07-31] MEDS: DOCUSATE SODIUM/SENNA 50/8.6MG TAB PO SCH (20:18)
[2018-07-31] MEDS: FUROSEMIDE 40 MG TAB PO SCH (20:18)
[2018-07-31] MEDS: AMLODIPINE BESYLATE 5 MG TAB PO SCH (20:19)
[2018-07-31] MEDS: ACETAMINOPHEN 500 MG TAB PO PRN (20:25)
[2018-08-01] MEDS: LEVOTHYROXINE SODIUM 88 MCG TABLET PO SCH (06:41)
[2018-08-01] MEDS: LACTOBACILLUS ACIDOPHILUS (FLORANEX) TAB PO SCH (07:14)
[2018-08-01] MEDS: PARoxetine HCl 10 MG TAB PO SCH (07:14)
[2018-08-01] MEDS: guaiFENesin 600 MG TABCR PO SCH (07:14)
[2018-08-01] MEDS: ALPRAZolam 0.5 MG TABLET PO SCH (07:16)
--- NOTE | 2018-08-01 08:07 | Hospitalist Progress Note ---
Date of Service August 01, 2018 Assessment & Plan (1) Spinal stenosis, lumbar region with neurogenic claudication: S/P Lumbar Decompression/Fusion L3-S1 by Dr. John POD #5 Wound/pain management per ortho activity and therapy as directed by ortho dvt ppx as directed by ortho incentive spirometry follow cbc for abl anemia Fever/Tachycardia Resolved, Pancultured, CTA Chest neg for PE, Cx neg, Spirometry ordered, Duoneb DC today from IM standpoint, Off Abx (2) Acute blood loss anemia: Stable (3) Hypertension: Blood Great (4) Hypothyroidism: Continue Levothyroxine (5) Anxiety and depression: Mood is stable continue as needed Xanax and daily Paxil (6) DVT prophylaxis: SCSD/TEDS, per ortho Disposition: per primary Follow up: PCP at [facility] upon discharge This patient with pre-op diagnosis of Lumbar spinal stenosis with radiculopathy Actual Procedures #1 removal of posterior instrumentation L3-4 L4-5. #2 exploration of fusion L3- 4 L4-5 per #3 lumbar decompression bilateral medial facetectomies foraminotomies L5-S1. #4 posterior spinal fusion L3-4 L4-5 L5-S1. #5 placement of posterior segmental instrumentation L3-4 L4-5 5 S1. #6 interbody fusion L5-S1 per #7 placement of peek cage 12 x 22 mm at L5-S1. #8 placement of local autograft in the posterior lateral gutters. #9 placement infuse collagen sponge, mass graft in the posterior gutters and ostial amp and interbody space. Resume Post Op Care per Surgery Protocol Incentive Spirometry 10x per Hour Resume Relative Home Meds Where Appropriate PT/OT PO Pain control DVT Prophylaxis Per Surgery Protocol DC today from IM standpoint K script for DC ROS-No Headache, No Visual Changes, No Nausea, No Vomiting, No Fever, No Chills, No Neck Pain or Stiffness, No Chest Pain, No Palpitations, No SOB, No JONES, No Cough, No Sputum, No Wheezing, No Abdominal Pain, No Diarrhea, No Hematemesis, No Hemoptysis, No Unexpected Weight Loss, No Flank pain, No Melena, No Hematochezia, No Frequency, No Urgency, No Burning, No Hematuria, No Rashes, No Diaphoresis. Appetite is Normal, C/O sore Back, daily improvement Physical Exam Gen-AAO x 3, NAD, Afebrile Head-NCAT, EOMI, PERRLA, Anicteric Sclera, No Posterior Pharyngeal Erythema Neck-Supple, No JVD, No Thyromegaly, No Masses, No LAD, No Bruits Lungs-Clear to Auscultation Bilaterally, No Rales, No Rhonchi, No Wheezing, No Crepitus Chest-No S4, +S1, +S2, No S3, No Murmurs, No Rubs, No Gallops, No Ectopy Abdomen-Soft, Bowel Sounds Present, Non Tender, Non Distended, No Hepatomegaly, No Splenomegaly, No Palpable Masses, No Rebound, No Rigidity, No Guarding Musculoskeletal-Full Range of Motion Bilaterally, No CVAT Extremities-No Cyanosis, No Clubbing, No Edema Nuero-Cranial Nerves II-XII grossly intact, Motor WNL, DTRs WNL, Strength WNL, Non Focal Psych-Normal Mood Results & Data Vital Signs (Past 12 Hours) Vital Signs Temp Pulse Pulse Pulse Pulse Resp BP 08/01/18 07:40 36.7 C 77 16 08/01/18 05:46 36.8 C 76 76 14 125/72 07/31/18 23:34 36.5 C 88 14 124/69 07/31/18 20:15 105 H BP Pulse Ox 08/01/18 07:40 128/80 99 08/01/18 05:46 97 07/31/18 23:34 99 07/31/18 20:15 137/79 97 Current Diagnoses Acute posthemorrhagic anemia (07/26/18) Hypothyroidism, unspecified (07/26/18) Major depressive disorder, single episode, unspecified (07/26/18) Anxiety disorder, unspecified (07/26/18) Essential (primary) hypertension (07/26/18) Spinal stenosis, lumbar region with neurogenic claudication (07/26/18) Encounter for other preprocedural examination (07/26/18) Encounter for prophylactic measures, unspecified (07/26/18) Allergies adhesive Adverse Reaction (Intermediate, Verified 07/30/18 14:48) Bandages tears off skin cyclosporine Adverse Reaction (Intermediate, Verified 07/26/18 09:26) EXCESSIVE EYE BURNING tramadol Adverse Reaction (Intermediate, Verified 07/26/18 09:26) ABDOMINAL PAIN terbinafine Adverse Reaction (Mild, Verified 07/26/18 09:26) Nausea Height/Weight/Isolation Height 5 ft 3.5 in Weight 56.8 kg Chemistry 07/31/18 08:30 Sodium 133 L Potassium 3.3 L D Chloride 96 L Carbon Dioxide 29 Anion Gap 8.0 BUN 12 Creatinine 0.98 Glucose 111 H Microbiology 07/29/18 08:25 Urine,Clean Catch Urine Culture - Final No growth - less than 1,000 colonies/mL.
[2018-08-01] MEDS: ACETAMINOPHEN 500 MG TAB PO PRN (11:06)
--- NOTE | 2018-08-01 13:42 | Discharge Summary ---
Date of Service August 01, 2018 Admission HPI Per Admitting Provider This is a 82-year-old female who presents with chronic persistent back and leg pain. After failing extensive course of nonoperative care she is here for surgical intervention. Principal Diagnosis Lumbar spinal stenosis with neurogenic claudication Discharge Data Allergies Allergy/AdvReac Type Severity Reaction Status Date / Time adhesive AdvReac Intermediate Bandages Verified 07/30/18 14:48 tears off skin cyclosporine AdvReac Intermediate EXCESSIVE Verified 07/26/18 09:26 EYE BURNING tramadol AdvReac Intermediate ABDOMINAL Verified 07/26/18 09:26 PAIN terbinafine AdvReac Mild Nausea Verified 07/26/18 09:26 Consultations 07/26/18 13:55 Consult Case Management - Discharge Planning Routine Consult Hospitalist Routine Procedures Performed Operation Date: 07/26/18 10:25 Actual Procedures p L5-S1 Decompression and Fusion, Interbody Fusion L5-S1, L3-L4, L4-L5 Removal of Hardware and Reinstrumentation, Spinal Cord Monitoring(Not Applicable) - Jay John DO s L3-L4, L4-L5 Removal of Hardware and Reinstrumentation(Not Applicable) - Jay John DO Ordered Studies 07/26/18 10:25 FL fluoroscopy <1hr Routine FL lumbar spine 2-3V Routine 07/28/18 16:09 CT angio chest PE protocol Urgent CT head/brain wo con Urgent Hospital Course (1) Spinal stenosis, lumbar region with neurogenic claudication: Patient underwent lumbar decompression fusion tolerated as well as taken to orthopedic for postoperative. Postop day #1 her leg symptoms are improved she began physical therapy. She progressed appropriately throughout her hospital stay becoming more independent JO ANN drain decreasing appropriately. Bowels working well. Subsequent discharge home. Discharge orders and instructions from the chart for further review. Total Time Total Time Spent Total Time Spent (In Minutes): 20 minutes Discharge Plan Discharge Items Patient Disposition: Home - Home Health Services Reason For Visit: Radiculopathy, Lumbar Region Discharge Diagnosis: lumbar stenosis Discharge Goals: Improve function Activity: Per 'Additional Instructions' section Non-emergency contact: Primary Care Provider Call non-emergency contact if: you have any medication questions Follow-up/Referrals: Milan Galindo DO [Primary Care Provider] - Diet: Regular Addtl Provider Instructions: ACTIVITY RECOMMENDATIONS: SELF CARE INSTRUCTIONS AFTER THORACIC/LUMBAR FUSIONS 1. You may walk to your tolerance. It is good exercise for your legs and back. Expect some back and intermittent leg aches and pains. 2. You may perform "counter-top" level activities (make a sandwich, edmar with a project, etc.). 3. No bending or lifting of more than 10 pounds or back twisting of any nature (roll like a log when turning in bed). 4. You may ride in a car for 20-30 minutes at a time. No driving until after your first visit with your doctor. 5. Frequent changes of position and restricting sitting to 30 minutes at a time will help limit the amount of back spasms and stiffness you may experience. 6. You may discontinue the use of ambulatory aids (cane, crutches, etc.) once your strength and confidence allow. 7. You may director of cardiology service line the shower and let water strike your incision when you arrive home at least once daily. Do not take a tub bath, sit in a hot tub or go into a swimming pool until after your first recheck in the office. SPECIAL CARE INSTRUCTIONS: VERY IMPORTANT TO READ AND REVIEW A. Your surgical incision has been closed with a cosmetic suture under the skin that will dissolve in about 6 weeks. In 14 days, you can use a pair of clean scissors and cut the suture that is left outside of the skin at the ends of your incision. 1. The small skin tapes can be removed 7 days after surgery if they have not fallen off by that point. 2. You may keep the wound open to air as much as possible to promote healing after post-op day number 5 unless told otherwise by your doctor. 3. If you think the wound looks like it is becoming infected (redness or worsening drainage) and/or you are experiencing fever, chill or worsening back pain and muscle spasms, contact the office so that we may evaluate you as soon as possible. B. Complications are uncommon, but please contact us if you have any signs or symptoms of: 1. wound infection (fever higher than 102.5 degrees F, redness, separation of wound, drainage, or increasing pain from the incision) 2. blood clots in legs (pain, swelling, redness and warmth in legs) 3. urinary tract infection (fever higher than 102.5 degrees F, burning upon urination or increased frequency of urination) 4. nerve problems (inability to walk on your toes or heels, numbness, loss of bowel or bladder control) 5. any other symptoms that concern you C. Please call the office at if you have any concerns or questions about your operation or recovery. D. No smoking! Smoking drastically decreases the chance of a solid fusion. E. Do not take any anti-inflammatory medications (Indocin, Advil, Motrin, Aspirin, Naprosyn, etc.) as these may inhibit the chance of a solid fusion. Tylenol is okay to take for pain. MANAGING PAIN AFTER SPINAL SURGERY 1. Narcotic medication is intended for short-term use and will be provided for surgical pain. Surgical pain usually lasts for a period of 4-6 weeks. Narcotic medication includes Percocet, Vicodin, Darvocet, Tylenol #3 or Lortab. 2. Longer-term pain is more appropriately treated with non-narcotic medication such as Tylenol ES. 3. Muscle spasm is not appropriately treated with narcotics. Muscle relaxers such as Soma, Flexeril or Skelaxin can be used along with Tylenol ES. 4. Remember that we all live with some "aches and pains". This is not unusual or uncommon after an injury or as we get older. a. Back pain is expected and may include muscle spasms for 4 to 6 weeks after surgery. The pain should gradually improve. If the pain worsens for no apparent reason, please contact the office. b. Intermittent leg pain may also be experienced and should not be concerned about unless it worsens for no apparent reason. If so, please contact the office. 5. We will provide appropriate medication within the normal guidelines of their prescribed use. We will also be very cautious and aware of potential abuse and extended duration of patients' medication needs. a. Pain medications are for your comfort and to assist with sleep and rest so that the tissue can heal. They are not provided in order to return to normal activity and should not be used through the day. To do so or worsening pain at night can result from ongoing tissue damage and development of tolerance to the prescribed medicine. 6. Please allow 2-3 days to process refills. Prescriptions will not be mailed but must be picked up at the office. FOLLOW UP VISIT: Keep your scheduled follow-up appointment. Any questions, please call the office at . Prescriptions: New oxycodone 5 mg Tablet 5 mg PO Q4H PRN (Reason: Pain) Qty: 30 RF: 0 potassium chloride 20 mEq tablet extended release 20 meq PO BID Qty: 30 RF: 0 Continued Allergy Tablet 1 tab PO UD PRN (Reason: SINUS CONGESTION) RF: 0 furosemide 40 mg Tablet 40 mg PO QAM RF: 0 paroxetine HCl 10 mg Tablet 10 mg PO QAM RF: 0 amlodipine 2.5 mg Tablet 2.5 mg PO QPM RF: 0 alprazolam 0.5 mg Tablet 0.5 mg PO BID RF: 0 levothyroxine 88 mcg Capsule 88 mcg PO QAM RF: 0 Centrum Silver Women 8 mg iron-400 mcg-300 mcg Tablet 1 tab PO DAILY RF: 0 guaifenesin [Mucinex] 600 mg Tablet Extended Release 12hr 600 mg PO BID RF: 0 Metamucil 3.4 gram/5.4 gram Powder 1 tbsp PO DAILY RF: 0 fluticasone propionate [Flonase Allergy Relief] 50 mcg/actuation [place],Suspension 1 spray INTRANASAL UD PRN (Reason: SINUS CONGESTION) RF: 0 calcium citrate-vitamin D3 [Citracal Regular] 250 mg calcium- 200 unit Tablet 1 tab PO DAILY RF: 0 Antacid 1 tab PO DAILY RF: 0 Probiotic 3 billion cell Capsule 3,000 mmu cells PO DAILY RF: 0 Systane (PF) 0.4-0.3 % [place] 1 drp OPHTHALMIC (EYE) BID PRN (Reason: Dry Eyes) RF: 0 Discontinued ibuprofen [Advil] 200 mg Tablet 1 - 2 tab PO TID PRN (Reason: Pain) RF: 0 Stand-Alone Forms: [facility], Opioid Pain Management [facility]/Other Patient Handouts: Tips Back Post Op Discharge Orders: Discharge Order (Routine); Ordered 07/30/18 Ordered By: Rola Almodovar Admission Data Admit Date/Time: 07/26/18 12:35 Attending Provider: Jay John Admit Provider: Jay John Primary Care Provider: Milan Galindo Other Providers: Juan Ramon Monae Service: Surgical Services
== END 2018-08-01 13:56 | disposition home health service (06) | DRG 454 ==
LOC: ASU 08:43 → 3E 12:35